=== PATIENT | female | born 1970 | race Caucasian/White ===

== ENCOUNTER → 2017-06-13 | Outpatient (CLI) | payer OTHER ==
[2017-06-13 13:11] LABS: Basophils % (A) 1 %; Eosinophils # (A) 0.1 k/uL (0-0.7); Eosinophils % (A) 1 %; HCT 40.3 % (34.0-46.0); HGB 13.6 gm/dL (11.4-16.0); Lymphocytes # (A) 1.8 k/uL (1.0-4.8); Lymphocytes % (A) 23 %; MCH 32.9 pg (25.0-35.0); MCHC 33.9 g/dL (31.0-37.0); MCV 97.1 fL (80.0-100.0); Mean Platelet Volume 6.7; Monocytes # (A) 0.5 k/uL (0-1.0); Monocytes % (A) 6 %; Neutrophils # (A) 5.5 k/uL (1.3-7.7); Neutrophils % (A) 68 %; Platelet Count 214 k/uL (150-450); RBC 4.15 m/uL (3.80-5.40); RDW 12.7 % (11.5-15.5)
== END ==
LOC: LABPAT 12:30
PROVIDERS: ATTEND Obstetrics & Gynecology Obstetrics
DX: Z01.812 Encounter for preprocedural laboratory examination (principal); I10 Essential (primary) hypertension; N92.0 Excessive and frequent menstruation with regular cycle; N94.6 Dysmenorrhea, unspecified; Z64.0 Problems related to unwanted pregnancy
CPT/HCPCS: 36415; 85025

== ENCOUNTER 2017-07-03 08:38 | Day surgery (SDC) | payer OTHER ==
[2017-06-29 09:06] VITALS: BMI 32.9
[~2017-07-03 08:38] MED LIST: ACETAMINOPHEN IV (For NPO) 1,000 MG in EMPTY BAG 1 BAG IVPB ONE; ACETAMINOPHEN IV (For NPO) 100 ML IVPB ONE; DEXAMETHASONE SOD PHOSPHATE 10 MG/ML 1 ML VIAL IV ONE; LACTATED RINGERS 1,000 ML IV SCH; MIDAZOLAM 2 MG/2 ML VIAL IV PRN; MORPHINE SULFATE 2 MG/ML SYRINGE IV PRN; ONDANSETRON ODT 4 MG TAB PO ONE; Pre Op ABX Message 1 EACH MISC MISCELLANE ONE; SCOPOLAMINE 1.5MG/72HR PATCH TRANSDERM ONE; ceFAZolin IN SWFI 2 GM/20 ML SYRINGE IVP ONE; fentaNYL (PF) 50 MCG/ML 2 ML AMP IV PRN
[2017-07-03] MEDS ORDERED: LIDOCAINE 1% 20 ML VIAL (10MG/ML) FOR IV START INTRADERMA ONE (09:54)
[2017-07-03] MEDS ORDERED: PHENYLEPHRINE-0.9% NACL SYG 1 MG/10 ML SYRINGE ONE (11:15)
[2017-07-03] MEDS ORDERED: MORPHINE SULFATE 10 MG/ML SYRINGE ONE (11:15)
[2017-07-03] MEDS ORDERED: MIDAZOLAM 2 MG/2 ML VIAL ONE (11:15)
[2017-07-03] MEDS ORDERED: fentaNYL (PF) 50 MCG/ML 2 ML AMP ONE (11:15)
[2017-07-03] MEDS ORDERED: GLYCOPYRROLATE 0.2 MG/ML 2 ML VIAL ONE (11:15)
[2017-07-03] MEDS ORDERED: NEOSTIGMINE 1 MG/ML 10 ML VIAL ONE (11:15)
[2017-07-03] MEDS ORDERED: PROPOFOL 10 MG/ML 20 ML VIAL IV ONE (11:15)
[2017-07-03] MEDS ORDERED: LIDOCAINE 1% INJ 10MG/ML (20 ML MDV) ONE (11:15)
[2017-07-03] MEDS ORDERED: KETOROLAC 30 MG/ML 1 ML VIAL ONE (11:15)
[2017-07-03] MEDS ORDERED: ROCURONIUM BROMIDE 10 MG/ML 10 ML VIAL IV ONE (11:15)
[2017-07-03] MEDS ORDERED: LACTATED RINGERS 1,000 ML IV ONE ×2 (11:30→13:09)
[2017-07-03] MEDS ORDERED: BUPIVACAINE (PF) 0.25% 30 ML VIAL SQ ONE ×3 (11:58→12:10)
--- NOTE | 2017-07-03 12:15 | P.OP ---
Date of Procedure: 07/03/17 Preoperative Diagnosis: menorrhagia, family status complete desires permanent sterilization Postoperative Diagnosis: same Procedure(s) Performed: Laparoscopic tubal ligation with Falope-Rings, hysteroscopy, dilation and curettage with endometrial ablation Anesthesia: OLIVE Surgeon: Consuelo Cardenas Estimated Blood Loss (ml): 10 IV fluids (ml): 900 Urine output (ml): 50 Pathology: other (Endometrial curettings) Condition: stable Indications for Procedure: Heavy menstrual bleeding, desires permanent sterilization Operative Findings: Proliferative endometrial cavity, fundal fibroid and normal ovaries bilaterally Description of Procedure: Patient was seen in the preoperative area and informed consent was obtained. Risks were reviewed including but not limited to infection, bleeding, damage to bladder, bowel, uterine perforation. Patient stated understanding and informed consent was obtained. Patient was seen in the operating suite where general anesthesia was obtained without difficulty by the anesthesia department she was then prepped and draped in normal sterile fashion in the dorsal lithotomy position a weighted speculum posterior vaginal vault and the red rubber catheter is used to drain clear yellow urine. The anterior lip of the cervix was visualized grasped with a single-tooth tenaculum and acorn uterine manipulator was advanced into the cervical canal as a means to manipulate the uterus during the procedure. Attention then turned to the patient's abdomen where in the umbilical fold a small incision is made through this incision the Veress needle was placed once the Veress needle was deemed to be the proper position with a drop of pressure with insufflation of CO2 gas, CO2 insufflation was allowed to occur. Approximately 3 L of gas were used to obtain pneumoperitoneum. At this time a 5 mm trocar and sleeve was placed through this incision with a customer care representative scope in placed with the pneumoperitoneum under direct visualization. The above noted findings were visualized at this point additional ports that is placed right lower quadrant this is an 8 mm port placed under direct visualization. Through this incision the Falope ring applicator was placed, and the left fallopian tube was grasped with the Falope ring applicator and operated according to children's book author's instructions, this was then repeated in the opposite side. Pictures were taken and all instrument were removed from the patient's abdomen. The skin incisions were closed with 4- 0 Vicryl in a subcuticular fashion, Steri-Strips and sterile dressings were applied. Attention was then turned the patient's vaginal vault acorn uterine manipulator was removed without difficulty and endocervical canal was dilated to [id number]. The hysteroscope was placed through the cervix and toward the endometrial cavity a proliferative endometrium was noted. A sharp curettage was then performed until gritty texture was noted in all 4 quadrants of the uterine cavity. At this point the NovaSure device was opened and set to the appropriate measurements for the patient's uterus length of 4 with of 2.5 power 55 cycling of 120. The cycle was completed after the cavity assessment was passed. Afterwards the device was removed without difficulty the single-tooth tenaculum was taken off of the anterior lip of the cervix and hemostasis was appreciated. All counts were correct 2 patient tolerated procedure well and was taken to recovery room awake and in stable condition
[2017-07-03 12:29] VITALS: TEMP 98.4
[2017-07-03] MEDS ORDERED: ACETAMINOPHEN IV (For NPO) 1,000 MG/100 ML VIAL IVPB ONE (12:58)
[2017-07-03 14:04] VITALS: BP 115/74; PULSE 70; RESP 18
== END 2017-07-03 14:28 | disposition home or self-care (01) ==
LOC: OR 08:38
PROVIDERS: ATTEND Obstetrics & Gynecology Obstetrics
DX: Z30.2 Encounter for sterilization (principal); N92.0 Excessive and frequent menstruation with regular cycle; I10 Essential (primary) hypertension; K21.9 Gastro-esophageal reflux disease without esophagitis; B00.9 Herpesviral infection, unspecified; Z79.82 Long term (current) use of aspirin; Z79.899 Other long term (current) drug therapy; Z87.891 Personal history of nicotine dependence
CPT/HCPCS: 81025; 58563; 58671; J2250; J1100; J2710; J2270; J2001; J3010; J1885; J0131; J2370; J2704; 88305

== ENCOUNTER → 2017-08-11 | Outpatient (CLI) | payer OTHER ==
--- NOTE | 2017-08-11 10:23 | USB ---
Reason for exam: clinical finding. History: Family history of breast cancer in maternal grandmother. Physical Findings: Nurse Summary: all soft, nodular tissue bilaterally (nurse ts). US Breast RT Right complete breast ultrasound includes all four quadrants, the retroareolar region and axilla. Finding demonstrates a 0.3 x 0.3 x 0.2cm oval lesion too small to characterize at 12 o'clock, a 0.4 x 0.5 x 0.2cm oval, cystic, mixed cluster at 1 o'clock, a 0.2 x 0.5 x 0.2cm oval, complex lesion too small to characterize at 10 o'clock and a 0.6 x 0.4 x 0.2cm oval, complex, cystic lesion at 10 o'clock. These results were verbally communicated with the patient and result sheet given to the patient on 08/11/17. ASSESSMENT: Probably benign, BI-RAD 3 RECOMMENDATION: Follow-up diagnostic mammogram of both breasts. (due now for mammogram) Ultrasound of the right breast in 6 months.
== END | disposition home or self-care (01) ==
LOC: RADUSWWP 08:59
PROVIDERS: ATTEND Family Medicine
DX: R92.8 Other abnormal and inconclusive findings on diagnostic imaging of breast (principal)

== ENCOUNTER → 2017-08-18 | Outpatient (CLI) | payer OTHER ==
--- NOTE | 2017-08-21 09:45 | MM ---
Reason for exam: additional evaluation requested from prior study. Last mammogram was performed 2 years and 10 months ago. History: Family history of breast cancer in maternal grandmother. Took hormonal contraceptives beginning at age 17. Physical Findings: Breast exam done on 08/11/17. MG 3D Diag Mammo W/Cad FILEMON Bilateral CC and MLO view(s) were taken. Prior study comparison: October 08, 2014, bilateral MG diagnostic mammo w CAD FILEMON. The breast tissue is heterogeneously dense. This may lower the sensitivity of mammography. There are round, oval, multiple small circumscribed right breast masses corresponding to sonograph probable benign findings which will be followed with ultrasound in 6 months. No suspicious abnormality. These results were verbally communicated with the patient and result sheet given to the patient on 08/18/17. ASSESSMENT: Probably benign, BI-RAD 3 RECOMMENDATION: Ultrasound of the right breast in 6 months.
== END | disposition home or self-care (01) ==
LOC: RADMAMWWP 13:59
PROVIDERS: ATTEND Family Medicine
DX: R92.8 Other abnormal and inconclusive findings on diagnostic imaging of breast (principal)
CPT/HCPCS: 77062; 77066

== ENCOUNTER 2018-01-26 13:37 | Emergency (ER) | payer OTHER ==
[2018-01-26 14:57] LABS: Basophils % (A) 0 %; Eosinophils # (A) 0.1 k/uL (0-0.7); Eosinophils % (A) 1 %; HCT 43.4 % (34.0-46.0); HGB 15.5 gm/dL (11.4-16.0); Lymphocytes # (A) 0.5 k/uL (1.0-4.8); Lymphocytes % (A) 5 %; MCH 34.7 pg (25.0-35.0); MCHC 35.6 g/dL (31.0-37.0); MCV 97.4 fL (80.0-100.0); Mean Platelet Volume 7.8; Monocytes # (A) 0.6 k/uL (0-1.0); Monocytes % (A) 6 %; Neutrophils # (A) 8.3 k/uL (1.3-7.7); Neutrophils % (A) 85 %; Platelet Count 100 k/uL (150-450); RBC 4.45 m/uL (3.80-5.40); WBC 9.7 k/uL (3.8-10.6)
[2018-01-26 15:11] LABS: ALT 82 U/L (9-52); AST 128 U/L (14-36); Albumin 4.2 g/dL (3.5-5.0); Alkaline Phosphatase 87 U/L (38-126); Anion Gap 16 mmol/L; Blood Urea Nitrogen 8 mg/dL (7-17); Calcium 8.9 mg/dL (8.4-10.2); Carbon Dioxide 19 mmol/L (22-30); Chloride 97 mmol/L (98-107); Glucose 109 mg/dL (74-99); Potassium 3.7 mmol/L (3.5-5.1); Sodium 132 mmol/L (137-145); Total Bilirubin 1.1 mg/dL (0.2-1.3)
[2018-01-26] MEDS ORDERED: ACETAMINOPHEN TAB 500 MG TAB PO STA (15:51)
[2018-01-26] MEDS ORDERED: IBUPROFEN 800 MG TAB PO STA (15:51)
[2018-01-26] MEDS ORDERED: SODIUM CHLORIDE 0.9% 2,000 ML IV ONE (15:51)
[2018-01-26] MEDS ORDERED: PHENAZOPYRIDINE 200 MG TAB PO STA (15:52)
--- NOTE | 2018-01-26 15:55 | ED ---
General Adult HPI - General Chief complaint: Headache Stated complaint: Fever, NVD Time Seen by Provider: 01/26/18 15:42 Source: patient Mode of arrival: ambulatory Limitations: no limitations - History of Present Illness Initial comments: This is a 39-year-old female presents to the chief complaint of headache, urinary frequency, and back pain. Patient states that this is been going on over the last 10 days. He cannot identify an inciting incident. There are no aggravating or alleviating factors. Patient also admits to having a fever at home. She admits to nausea and vomiting. Patient has no other complaints today. - Related Data Home Medications Medication Instructions Recorded Confirmed Acyclovir [Zovirax] 800 mg PO DAILY 06/05/15 01/26/18 Allopurinol [Zyloprim] 300 mg PO DAILY 06/05/15 01/26/18 Eye Lubricant Combination No.1 1 applic BOTH EYES HS 06/05/15 01/26/18 [[place]] Omeprazole 20 mg PO DAILY 06/05/15 01/26/18 amLODIPine BESYLATE [Norvasc] 10 mg PO DAILY 06/05/15 01/26/18 Aspirin [Adult Low Dose Aspirin EC] 81 mg PO DAILY 06/11/15 01/26/18 Cholecalciferol (Vitamin D3) 5,000 unit PO QAM 06/29/17 01/26/18 [Vitamin D3] Hydrochlorothiazide [Hydrodiuril] 25 mg PO DAILY 06/29/17 01/26/18 Magnesium 400 mg PO QAM 06/29/17 01/26/18 Metoprolol Tartrate [Lopressor] 50 mg PO QAM 06/29/17 01/26/18 Crozet-3 Fatty Acids [Crozet-3] 1,600 mg PO QAM 06/29/17 01/26/18 SUMAtriptan SUCCINATE [Imitrex] 25 mg PO DIRECTED PRN 06/29/17 01/26/18 Ibuprofen [Motrin Ib] 800 mg PO Q6HR PRN 01/26/18 01/26/18 Previous Rx's Medication Instructions Recorded Levofloxacin [Levaquin] 750 mg PO DAILY #7 tab 01/26/18 Phenazopyridine HCl [Pyridium] 200 mg PO TID PRN #6 tablet 01/26/18 Allergies Allergy/AdvReac Type Severity Reaction Status Date / Time No Known Allergies Allergy Verified 01/26/18 16:00 Review of Systems ROS Statement: Those systems with pertinent positive or pertinent negative responses have been documented in the HPI. ROS Other: All systems not noted in ROS Statement are negative. Gastrointestinal: Reports: nausea, vomiting Musculoskeletal: Reports: back pain Past Medical History Past Medical History: GERD/Reflux, Hypertension, Osteoarthritis (OA) Additional Past Medical History / Comment(s): gout History of Any Multi-Drug Resistant Organisms: None Reported Past Surgical History: Cholecystectomy Additional Past Surgical History / Comment(s): carpel tunnel, d & c, polyps removed Past Anesthesia/Blood Transfusion Reactions: No Reported Reaction Past Psychological History: No Psychological Hx Reported Smoking Status: Current some day smoker Past Alcohol Use History: Daily Past Drug Use History: None Reported - Past Family History Father Family Medical History: No Reported History, Unable to Obtain Mother Family Medical History: Hypertension Additional Family Medical History / Comment(s): HTN General Exam Limitations: no limitations General appearance: alert, in no apparent distress Head exam: Present: atraumatic, normocephalic Eye exam: Present: normal appearance ENT exam: Present: mucous membranes dry Neck exam: Present: normal inspection Respiratory exam: Present: normal lung sounds bilaterally. Absent: respiratory distress, wheezes Cardiovascular Exam: Present: regular rate, normal rhythm GI/Abdominal exam: Present: soft. Absent: distended, tenderness Rectal exam: Present: deferred Extremities exam: Present: normal inspection Back exam: Present: normal inspection. Absent: CVA tenderness (R), CVA tenderness (L) Neurological exam: Present: alert, oriented X3 Psychiatric exam: Present: normal affect, normal mood Skin exam: Present: warm, dry, intact Course Vital Signs 01/26/18 01/26/18 13:51 17:06 Temperature 100.6 F H 98.6 F Pulse Rate 95 84 Respiratory 16 16 Rate Blood Pressure 103/72 109/65 O2 Sat by Pulse 97 96 Oximetry Medical Decision Making - Medical Decision Making Patient presents with a chief complaint of dysuria, headache, and fever. On initial evaluation, vital signs show a fever of 100.6 otherwise stable. Patient is in no acute distress. Patient is mandatory without assistance, she has no meningeal signs. I suspect the patient is suffering from urinary tract infection, versus pyelonephritis. She'll be evaluated with basic labs, urinalysis, urine culture. Patient given Motrin, Tylenol, and Pyridium for symptomatically relief. 5:28 PM Lab evaluation of this patient shows evidence of a urinary tract infection, culture sent. renal function stable. Liver enzymes mildly elevated, patient aware and instructed to follow up. Patient given a dose of Rocephin in the emergency department. She'll be treated with 7 days of Levaquin. Patient instructed to follow up with primary care in 1 week for repeat examination of her urine. Return to the emergency department if symptoms worsen or change. - Lab Data Result diagrams: 01/26/18 14:35 01/26/18 14:35 Lab Results 01/26/18 01/26/18 01/26/18 Range/Units 14:35 14:35 Unknown WBC 9.7 (3.8-10.6) k/uL RBC 4.45 (3.80-5.40) m/uL Hgb 15.5 (11.4-16.0) gm/dL Hct 43.4 (34.0-46.0) % MCV 97.4 (80.0-100.0) fL MCH 34.7 (25.0-35.0) pg MCHC 35.6 (31.0-37.0) g/dL RDW 13.0 (11.5-15.5) % Plt Count 100 L (150-450) k/uL Neutrophils % 85 % Lymphocytes % 5 % Monocytes % 6 % Eosinophils % 1 % Basophils % 0 % Neutrophils # 8.3 H (1.3-7.7) k/uL Lymphocytes # 0.5 L (1.0-4.8) k/uL Monocytes # 0.6 (0-1.0) k/uL Eosinophils # 0.1 (0-0.7) k/uL Basophils # 0.0 (0-0.2) k/uL Sodium 132 L (137-145) mmol/L Potassium 3.7 (3.5-5.1) mmol/L Chloride 97 L (98-107) mmol/L Carbon Dioxide 19 L (22-30) mmol/L Anion Gap 16 mmol/L BUN 8 (7-17) mg/dL Creatinine 0.55 (0.52-1.04) mg/dL Est GFR (CKD-EPI)AfAm >90 (>60 ml/min/1.73 sqM) Est GFR (CKD-EPI)NonAf >90 (>60 ml/min/1.73 sqM) Glucose 109 H (74-99) mg/dL Calcium 8.9 (8.4-10.2) mg/dL Total Bilirubin 1.1 (0.2-1.3) mg/dL AST 128 H (14-36) U/L ALT 82 H (9-52) U/L Alkaline Phosphatase 87 (38-126) U/L Total Protein 8.0 (6.3-8.2) g/dL Albumin 4.2 (3.5-5.0) g/dL Urine Color Dark Yellow Urine Appearance Cloudy H (Clear) Urine pH 6.0 (5.0-8.0) Ur Specific [place] 1.018 (1.001-1.035) Urine Protein 1+ H (Negative) Urine Glucose (UA) Negative (Negative) Urine Ketones 2+ H (Negative) Urine Blood Small H (Negative) Urine Nitrite Negative (Negative) Urine Bilirubin Negative (Negative) Urine Urobilinogen 2.0 (<2.0) mg/dL Ur Leukocyte Esterase Large H (Negative) Urine RBC 20 H (0-5) /hpf Urine WBC >182 H (0-5) /hpf Ur Squamous Epith Cells 3 (0-4) /hpf Urine Bacteria Moderate H (None) /hpf Urine Mucus Many H (None) /hpf Disposition Clinical Impression: Pyelonephritis, Fever, Transaminitis, Elevated LFTs Disposition: HOME SELF-CARE Condition: Good Instructions: Urinary Tract Infection in Women (DC) Prescriptions: Levofloxacin [Levaquin] 750 mg PO DAILY #7 tab Phenazopyridine HCl [Pyridium] 200 mg PO TID PRN #6 tablet PRN Reason: Pain Is patient prescribed a controlled substance at d/c from ED?: No Referrals: Zaire Steiner MD [Primary Care Provider] - 1-2 days
[2018-01-26 16:37] LABS: Appearance,Urine Cloudy (Clear); Bacteria,Urine Moderate /hpf; Bilirubin,Urine Negative (Negative); Blood,Urine Small (Negative); Color,Urine Dark Yellow; Glucose,Urine (UA) Negative (Negative); Ketones,Urine 2+ (Negative); Leukocyte Esterase,Urine Large (Negative); Mucus,Urine Many /hpf; Nitrite,Urine Negative (Negative); Protein,Urine 1+ (Negative); RBC,Urine 20 /hpf (0-5); Specific Gravity,Urine 1.018 (1.001-1.035); Squamous Epithelial Cell,Urine 3 /hpf (0-4)
[2018-01-26 19:26] VITALS: BP 92/55; PULSE 74; RESP 15; TEMP 99
[2018-01-26 21:00] LABS: HCG,Qualitative Serum Not Detected
== END 2018-01-26 19:30 | disposition home or self-care (01) ==
LOC: EC 13:37
DX: N12 Tubulo-interstitial nephritis, not specified as acute or chronic (principal); R74.0 Nonspecific elevation of levels of transaminase and lactic acid dehydrogenase [LDH]; R79.89 Other specified abnormal findings of blood chemistry; I10 Essential (primary) hypertension; K21.9 Gastro-esophageal reflux disease without esophagitis; F17.200 Nicotine dependence, unspecified, uncomplicated; Z79.82 Long term (current) use of aspirin; Z79.899 Other long term (current) drug therapy
CPT/HCPCS: 36415; 80053; 85025; 81001; 84703; 87040; 87086; 87077; 87186; 99284; 96365; 96361; J0696

== ENCOUNTER → 2018-02-19 | Outpatient (CLI) | payer OTHER ==
--- NOTE | 2018-02-19 12:16 | USB ---
Reason for exam: follow-up at short interval from prior study. History: Family history of breast cancer in maternal grandmother. Took hormonal contraceptives beginning at age 17. Physical Findings: Nurse did not find any significant physical abnormalities on exam. US Breast RT Right complete breast ultrasound includes all four quadrants, the retroareolar region and axilla. Finding demonstrates a 0.3 x 0.3 x 0.3cm lesion too small to characterize at 12 o'clock, a 0.4 x 0.4 x 0.6cm cystic cluster at 1 o'clock, a 0.6 x 0.3 x 0.5cm cystic cluster at 10 o'clock and a 0.4 x 0.3 x 0.4cm lesion too small to characterize at 10 o'clock. These results were verbally communicated with the patient and result sheet given to the patient on 02/19/18. ASSESSMENT: Probably benign, BI-RAD 3 RECOMMENDATION: Follow-up diagnostic mammogram of both breasts in 6 months. Back on schedule. Ultrasound of the right breast in 6 months.
== END | disposition home or self-care (01) ==
LOC: RADUSWWP 10:14
PROVIDERS: ATTEND Family Medicine
DX: R92.8 Other abnormal and inconclusive findings on diagnostic imaging of breast (principal)

== ENCOUNTER → 2018-02-27 | Outpatient (CLI) | payer OTHER | END | disposition home or self-care (01) | LOC: RADCTMAIN 12:06 | PROVIDERS: ATTEND Family Medicine | DX: Z53.9 Procedure and treatment not carried out, unspecified reason (principal) ==

== ENCOUNTER → 2018-05-18 | Outpatient (CLI) | payer OTHER ==
--- NOTE | 2018-05-18 11:36 | CT ---
EXAMINATION TYPE: CT abdomen pelvis w con DATE OF EXAM: 05/18/2018 HISTORY: Lower abdominal pain and bilateral leg swelling. CT DLP: 1035.2mGycm Automated Exposure Control for Dose Reduction was Utilized. CONTRAST: CT scan of the abdomen and pelvis is performed with IV Contrast, patient injected with 100 mL of Isov ue M300. COMPARISON: 03/02/2015. FINDINGS: LUNG BASES: No significant abnormality is appreciated. LIVER/GB: Hepatic parenchyma is diffusely hypoattenuated in comparison to that of the spleen, most co mmonly seen in hepatic steatosis. This finding limits evaluation for hepatic masses. No gross evidenc e of hepatic mass is seen. No intrahepatic biliary ductal dilatation. Gallbladder appears surgically absent. PANCREAS: No significant abnormality is seen. SPLEEN: No significant abnormality is seen. ADRENALS: No significant abnormality is seen. KIDNEYS: Left renal cyst measures 1.8 cm. No hydronephrosis of either kidney. BOWEL: No significant abnormality is seen. Appendix is midline and air-filled, within normal limits. UTERUS/ADNEXA: 2.7 cm left adnexal cyst is present. Probable nabothian cyst is seen. LYMPH NODES: No greater than 1cm abdominal or pelvic lymph nodes are appreciated. OSSEOUS STRUCTURES: Mild degenerative changes are seen in the lumbar spine. IMPRESSION: 1. Redemonstration of hepatic steatosis. 2. Left renal cyst and probable left adnexal cyst.
== END | disposition home or self-care (01) ==
LOC: RADCTMAIN 09:01
PROVIDERS: ATTEND Family Medicine
DX: K76.0 Fatty (change of) liver, not elsewhere classified (principal); N28.1 Cyst of kidney, acquired
CPT/HCPCS: 74177; Q9967

== ENCOUNTER → 2018-09-05 | Outpatient (CLI) | payer OTHER ==
--- NOTE | 2018-09-06 09:26 | MM ---
Reason for exam: additional evaluation requested from prior study. Last mammogram was performed 1 year and 1 month ago. History: Family history of breast cancer in maternal grandmother. Took hormonal contraceptives beginning at age 17. Physical Findings: Nurse did not find any significant physical abnormalities on exam. MG 3D Diag Mammo W/Cad FILEMON Bilateral CC and MLO view(s) were taken. LM, spot compression CC, and spot compression MLO view(s) were taken of the left breast. Prior study comparison: August 18, 2017, bilateral MG 3d diag mammo w/cad FILEMON. October 08, 2014, bilateral MG diagnostic mammo w CAD FILEMON. There are scattered fibroglandular densities. There is chronic nodularity in the right breast. Medial left breast asymmetry stable from 2018, does not persist on 3D. Central 3-4 o'clock asymmetric density appears more defined. On spot 3D, the area partially disperses. These results were verbally communicated with the patient and result sheet given to the patient on 09/05/18. ASSESSMENT: Incomplete: need additional imaging evaluation, BI-RAD 0 RECOMMENDATION: Ultrasound of both breasts. (right entire, left 3 o'clock)
--- NOTE | 2018-09-06 09:29 | USB ---
Reason for exam: additional evaluation requested from abnormal screening. History: Family history of breast cancer in maternal grandmother. Took hormonal contraceptives beginning at age 17. US Breast Limited BILAT Right complete breast ultrasound includes all four quadrants, the retroareolar region and axilla. Finding demonstrates a 4 x 2 x 4mm oval, hypoechoic lesion at 2 o'clock, stable, previous appearance of a cyst cluster, a 3 x 2 x 2mm oval, hypoechoic lesion too small to characterize at 11 o'clock, overall unchanged and a 3 x 3 x 5mm oval, hypoechoic lesion too small to characterize at 11 o'clock, overall unchanged. Left limited breast ultrasound including focal area of concern, retroareolar and axilla demonstrates no cystic or solid lesion seen. Scanned 12-4 o'clock. Precautionary 6 month follow up recommended. These results were verbally communicated with the patient and result sheet given to the patient on 09/05/18. ASSESSMENT: Probably benign, BI-RAD 3 RECOMMENDATION: Follow-up diagnostic mammogram of the left breast in 6 months.
== END | disposition home or self-care (01) ==
LOC: RADMAMWWP 12:56
PROVIDERS: ATTEND Family Medicine
DX: R92.8 Other abnormal and inconclusive findings on diagnostic imaging of breast (principal)
CPT/HCPCS: 77062; 77066

== ENCOUNTER 2018-10-24 12:41 | Emergency (ER) | payer OTHER ==
[2018-10-24 12:58] VITALS: RESP 18; TEMP 99.1
[2018-10-24] MEDS ORDERED: LIDOCAINE 5% PATCH TOPICAL STA (13:48)
[2018-10-24] MEDS ORDERED: MORPHINE SULFATE 4 MG/ML SYRINGE IV STA (13:49)
[2018-10-24 13:51] LABS: Appearance,Urine Clear (Clear); Bilirubin,Urine Negative (Negative); Blood,Urine Negative (Negative); Color,Urine Yellow; Glucose,Urine (UA) Negative (Negative); Ketones,Urine Negative (Negative); Leukocyte Esterase,Urine Negative (Negative); Nitrite,Urine Negative (Negative); Protein,Urine Trace (Negative); Specific Gravity,Urine 1.019 (1.001-1.035)
--- NOTE | 2018-10-24 13:52 | ED ---
General Adult HPI - General Chief complaint: Abdominal Pain Stated complaint: Back pain Time Seen by Provider: 10/24/18 13:03 Source: patient Mode of arrival: ambulatory Limitations: no limitations - History of Present Illness Initial comments: Dictation was produced using [employer] dictation software. please excuse any grammatical, word or spelling errors. Chief Complaint: 47-year-old female with past medical history of GERD hypertension osteoporosis presents with right lower back pain. History of Present Illness: She is a 47-year-old female she presents today with right lower back pain. 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 A few days at work she felt leg she went to stand up and felt a twinge in her right lower back. Patient states that her back symptoms in constant over the last couple days. Today she felt like her symptoms do not improve prompting her to come to the emergency department. Patient has history of back pain in the past however usually do not last this long. Patient denies any urinary symptoms. No CVA tenderness. Patient states her pain is sharp and reproducible with movement . She had her fianc rubbed the area and she was told that maybe there is a small palpable node in the area. She did not set her urine looked darker than usual. Patient has no history of kidney stones. The ROS documented in this emergency department record has been reviewed and confirmed by me. Those systems with pertinent positive or negative responses have been documented in the HPI. All other systems are other negative and/or noncontributory. PHYSICAL EXAM: General Impression: Alert and oriented x3, not in acute distress HEENT: Normocephalic atraumatic, extra-ocular movements intact, pupils equal and reactive to light bilaterally, mucous membranes moist. Cardiovascular: Heart regular rate and rhythm, S1&S2 audible, no murmurs, rubs or gallops Chest: Lungs clear to auscultation bilaterally, no rhonchi, no wheeze, no rales Abdomen: Bowel sounds present, abdomen soft, non-tender, non-distended, no organomegaly Musculoskeletal: Pulses present and equal in all extremities, no peripheral edema Motor: no focal deficits noted Neurological: CN II-XII grossly intact, no focal motor or sensory deficits noted Skin: Intact with no visualized rashes Psych: Normal affect and mood ED course: 47-year-old female presents with right lower back pain. Vital signs upon arrival are within acceptable limits.There is concern is that patient's symptoms did not reflect musculoskeletal injury. Labs and urine was obtained. CBC unremarkable. Metabolic panel is negative. Urinalysis is negative. Patient given IV analgesics, antiemetics and intravenous fluids. She states that her symptoms are slightly improved however not that much better. Nonetheless, patient appears comfortable. She is ambulatory with minimal complications. Patient symptoms are clearly musculoskeletal given that there only reproducible with pain. No concern for pelvic pathology given the patient has no complaints of urinary symptoms of a negative urinalysis and has no clinical vaginal complaints. Patient was comfortable being discharged to follow up with chiropractor. She is given referral to spine surgery. Patient prescription for muscle relaxants. - Related Data Home Medications Medication Instructions Recorded Confirmed Acyclovir [Zovirax] 800 mg PO DAILY 06/05/15 10/24/18 Allopurinol [Zyloprim] 300 mg PO DAILY 06/05/15 10/24/18 Omeprazole 20 mg PO DAILY 06/05/15 10/24/18 amLODIPine BESYLATE [Norvasc] 10 mg PO DAILY 06/05/15 10/24/18 Aspirin [Adult Low Dose Aspirin EC] 81 mg PO DAILY 06/11/15 10/24/18 Cholecalciferol (Vitamin D3) 5,000 unit PO QAM 06/29/17 10/24/18 [Vitamin D3] Hydrochlorothiazide [Hydrodiuril] 25 mg PO DAILY 06/29/17 10/24/18 Magnesium 400 mg PO QAM 06/29/17 10/24/18 Metoprolol Tartrate [Lopressor] 50 mg PO QAM 06/29/17 10/24/18 SUMAtriptan SUCCINATE [Imitrex] 25 mg PO DAILY PRN 06/29/17 10/24/18 Carboxymethylcellulose Sodium 1 drop BOTH EYES TID 10/24/18 10/24/18 [Refresh Tears] Cranberry Fruit Extract [Cranberry] 500 mg PO DAILY 10/24/18 10/24/18 Cyanocobalamin (Vitamin B-12) 1,000 mcg PO DAILY 10/24/18 10/24/18 [Vitamin B-12] L.acidoph,Paracasei, B.lactis 1 cap PO DAILY 10/24/18 10/24/18 [Probiotic] Lifitegrast [Xiidra] 1 drop BOTH EYES BID 10/24/18 10/24/18 Lutein 10 mg PO DAILY 10/24/18 10/24/18 [place] 3-6-9 1 cap PO DAILY 10/24/18 10/24/18 Potassium 99 mg PO DAILY 10/24/18 10/24/18 Spironolact/Hydrochlorothiazid 1 tab PO DAILY 10/24/18 10/24/18 [Aldactazide 50-50 MG] Ubidecarenone [Co Q-10] 400 mg PO DAILY 10/24/18 10/24/18 Vit C/E/Zn/Coppr/Lutein/Zeaxan 1 cap PO BID 10/24/18 10/24/18 [Preservision Areds 2 Softgel] Zolpidem Tartrate [Ambien] 10 mg PO HS PRN 10/24/18 10/24/18 Previous Rx's Medication Instructions Recorded Baclofen [Lioresal] 5 mg PO TID PRN #12 tablet 10/24/18 Allergies Allergy/AdvReac Type Severity Reaction Status Date / Time No Known Allergies Allergy Verified 10/24/18 13:51 Review of Systems ROS Statement: Those systems with pertinent positive or pertinent negative responses have been documented in the HPI. ROS Other: All systems not noted in ROS Statement are negative. Past Medical History Past Medical History: GERD/Reflux, Hypertension, Osteoarthritis (OA) Additional Past Medical History / Comment(s): gout History of Any Multi-Drug Resistant Organisms: None Reported Past Surgical History: Cholecystectomy Additional Past Surgical History / Comment(s): carpel tunnel, d & c, polyps removed Past Anesthesia/Blood Transfusion Reactions: No Reported Reaction Past Psychological History: Bipolar Smoking Status: Current some day smoker Past Alcohol Use History: Daily Past Drug Use History: None Reported - Past Family History Father Family Medical History: No Reported History, Unable to Obtain Mother Family Medical History: Hypertension Additional Family Medical History / Comment(s): HTN General Exam Limitations: no limitations Course Vital Signs 10/24/18 10/24/18 12:55 14:59 Temperature 99.1 F Pulse Rate 79 70 Respiratory 18 18 Rate Blood Pressure 128/81 102/64 O2 Sat by Pulse 98 94 L Oximetry Medical Decision Making - Lab Data Result diagrams: 10/24/18 13:30 10/24/18 13:30 Lab Results 10/24/18 10/24/18 10/24/18 Range/Units 13:30 13:30 13:30 WBC 7.0 (3.8-10.6) k/uL RBC 4.23 (3.80-5.40) m/uL Hgb 15.1 (11.4-16.0) gm/dL Hct 44.1 (34.0-46.0) % MCV 104.4 H (80.0-100.0) fL MCH 35.7 H (25.0-35.0) pg MCHC 34.2 (31.0-37.0) g/dL RDW 14.0 (11.5-15.5) % Plt Count 155 (150-450) k/uL Neutrophils % 68 % Lymphocytes % 19 % Monocytes % 9 % Eosinophils % 1 % Basophils % 1 % Neutrophils # 4.8 (1.3-7.7) k/uL Lymphocytes # 1.3 (1.0-4.8) k/uL Monocytes # 0.6 (0-1.0) k/uL Eosinophils # 0.1 (0-0.7) k/uL Basophils # 0.0 (0-0.2) k/uL Macrocytosis Slight Sodium 138 (137-145) mmol/L Potassium 3.8 (3.5-5.1) mmol/L Chloride 100 (98-107) mmol/L Carbon Dioxide 30 (22-30) mmol/L Anion Gap 8 mmol/L BUN 11 (7-17) mg/dL Creatinine 0.54 (0.52-1.04) mg/dL Est GFR (CKD-EPI)AfAm >90 (>60 ml/min/1.73 sqM) Est GFR (CKD-EPI)NonAf >90 (>60 ml/min/1.73 sqM) Glucose 176 H (74-99) mg/dL Calcium 8.9 (8.4-10.2) mg/dL AST (14-36) U/L ALT (9-52) U/L Alkaline Phosphatase (38-126) U/L Urine Color Yellow Urine Appearance Clear (Clear) Urine pH 8.0 (5.0-8.0) Ur Specific [place] 1.019 (1.001-1.035) Urine Protein Trace H (Negative) Urine Glucose (UA) Negative (Negative) Urine Ketones Negative (Negative) Urine Blood Negative (Negative) Urine Nitrite Negative (Negative) Urine Bilirubin Negative (Negative) Urine Urobilinogen 3.0 (<2.0) mg/dL Ur Leukocyte Esterase Negative (Negative) 10/24/18 Range/Units 13:30 WBC (3.8-10.6) k/uL RBC (3.80-5.40) m/uL Hgb (11.4-16.0) gm/dL Hct (34.0-46.0) % MCV (80.0-100.0) fL MCH (25.0-35.0) pg MCHC (31.0-37.0) g/dL RDW (11.5-15.5) % Plt Count (150-450) k/uL Neutrophils % % Lymphocytes % % Monocytes % % Eosinophils % % Basophils % % Neutrophils # (1.3-7.7) k/uL Lymphocytes # (1.0-4.8) k/uL Monocytes # (0-1.0) k/uL Eosinophils # (0-0.7) k/uL Basophils # (0-0.2) k/uL Macrocytosis Sodium (137-145) mmol/L Potassium (3.5-5.1) mmol/L Chloride (98-107) mmol/L Carbon Dioxide (22-30) mmol/L Anion Gap mmol/L BUN (7-17) mg/dL Creatinine (0.52-1.04) mg/dL Est GFR (CKD-EPI)AfAm (>60 ml/min/1.73 sqM) Est GFR (CKD-EPI)NonAf (>60 ml/min/1.73 sqM) Glucose (74-99) mg/dL Calcium (8.4-10.2) mg/dL AST 69 H (14-36) U/L ALT 58 H (9-52) U/L Alkaline Phosphatase 97 (38-126) U/L Urine Color Urine Appearance (Clear) Urine pH (5.0-8.0) Ur Specific [place] (1.001-1.035) Urine Protein (Negative) Urine Glucose (UA) (Negative) Urine Ketones (Negative) Urine Blood (Negative) Urine Nitrite (Negative) Urine Bilirubin (Negative) Urine Urobilinogen (<2.0) mg/dL Ur Leukocyte Esterase (Negative) Disposition Clinical Impression: Back pain Disposition: HOME SELF-CARE Condition: Good Instructions (If sedation given, give patient instructions): Acute Low Back Pain (ED) Prescriptions: Baclofen [Lioresal] 5 mg PO TID PRN #12 tablet PRN Reason: back pain Is patient prescribed a controlled substance at d/c from ED?: No Referrals: Zaire Steiner MD [Primary Care Provider] - 1-2 days Time of Disposition: 15:46
[2018-10-24 13:53] LABS: African American GFR (CKD) >90 (>60 ml/min/1.73 sqM); Anion Gap 8 mmol/L; Blood Urea Nitrogen 11 mg/dL (7-17); Calcium 8.9 mg/dL (8.4-10.2); Carbon Dioxide 30 mmol/L (22-30); Chloride 100 mmol/L (98-107); Glucose 176 mg/dL (74-99); Potassium 3.8 mmol/L (3.5-5.1); Sodium 138 mmol/L (137-145)
[2018-10-24 14:02] LABS: Basophils % (A) 1 %; Eosinophils # (A) 0.1 k/uL (0-0.7); Eosinophils % (A) 1 %; HCT 44.1 % (34.0-46.0); HGB 15.1 gm/dL (11.4-16.0); Lymphocytes # (A) 1.3 k/uL (1.0-4.8); Lymphocytes % (A) 19 %; MCH 35.7 pg (25.0-35.0); MCHC 34.2 g/dL (31.0-37.0); MCV 104.4 fL (80.0-100.0); Macrocytosis Slight; Mean Platelet Volume 7.5; Monocytes # (A) 0.6 k/uL (0-1.0); Monocytes % (A) 9 %; Neutrophils # (A) 4.8 k/uL (1.3-7.7); Neutrophils % (A) 68 %; Platelet Count 155 k/uL (150-450); RBC 4.23 m/uL (3.80-5.40)
[2018-10-24] MEDS ORDERED: SODIUM CHLORIDE 0.9% 1,000 ML IV STA (14:03)
[2018-10-24 14:23] LABS: ALT 58 U/L (9-52); AST 69 U/L (14-36); Alkaline Phosphatase 97 U/L (38-126)
[2018-10-24] MEDS ORDERED: ONDANSETRON 4 MG/2 ML VIAL IVP STA (14:36)
[2018-10-24 16:34] VITALS: BP 107/73; PULSE 63
== END 2018-10-24 16:31 | disposition home or self-care (01) ==
LOC: EC 12:41
DX: M54.5 Low back pain (principal); K21.9 Gastro-esophageal reflux disease without esophagitis; I10 Essential (primary) hypertension; M19.90 Unspecified osteoarthritis, unspecified site; M10.9 Gout, unspecified; F17.200 Nicotine dependence, unspecified, uncomplicated; Z79.82 Long term (current) use of aspirin; Z79.899 Other long term (current) drug therapy
CPT/HCPCS: 36415; 80048; 84075; 84450; 84460; 85025; 81003; 87086; 99284; 96374; 96375; 96361 ×2; J2270; J2405

== ENCOUNTER 2018-12-20 14:48 | Inpatient (IN) | payer OTHER ==
[2018-12-20 16:38] VITALS: BMI 70.9
[2018-12-20] MEDS ORDERED: SUMAtriptan SUCCINATE 25 MG TAB PO PRN (17:36)
[2018-12-20] MEDS ORDERED: NALOXONE 0.4 MG/ML 1 ML VIAL IV PRN (17:42)
[2018-12-20] MEDS: SPIRONOLACTONE-HCTZ 25-25MG 1 EACH TAB PO SCH (18:34)
[2018-12-20] MEDS: POTASSIUM CHLORIDE ER 10 MEQ TAB.ER.PRT PO SCH (18:34)
[2018-12-20] MEDS ORDERED: LORazepam 2 MG/ML INJ IV PRN (18:54)
[2018-12-20] MEDS ORDERED: THIAMINE 100 MG/ML 2 ML VIAL IM STA (18:54)
[2018-12-20] MEDS: THIAMINE 100 MG TAB PO SCH (19:01)
[2018-12-20] MEDS: DEXTROSE 5%-0.2% NACL 1,000 ML IV SCH (19:02)
[2018-12-20 19:13] LABS: Basophils # (A) 0.1 k/uL (0-0.2); Basophils % (A) 1 %; Eosinophils # (A) 0.1 k/uL (0-0.7); Eosinophils % (A) 1 %; HCT 41.9 % (34.0-46.0); HGB 14.2 gm/dL (11.4-16.0); Lymphocytes # (A) 1.3 k/uL (1.0-4.8); Lymphocytes % (A) 13 %; MCH 35.7 pg (25.0-35.0); MCHC 33.9 g/dL (31.0-37.0); MCV 105.3 fL (80.0-100.0); Macrocytosis Slight; Mean Platelet Volume 7.2; Monocytes # (A) 0.6 k/uL (0-1.0); Monocytes % (A) 5 %; Neutrophils # (A) 8.1 k/uL (1.3-7.7); Neutrophils % (A) 79 %; Platelet Count 201 k/uL (150-450); RBC 3.98 m/uL (3.80-5.40); RDW 12.7 % (11.5-15.5); WBC 10.2 k/uL (3.8-10.6)
[2018-12-20 19:20] LABS: INR 1.1 (<1.2); Prothrombin Time 11.2 sec (9.0-12.0)
[2018-12-20 19:28] LABS: ALT 53 U/L (9-52); AST 59 U/L (14-36); African American GFR (CKD) >90 (>60 ml/min/1.73 sqM); Albumin 4.1 g/dL (3.5-5.0); Alcohol <10 mg/dL; Alkaline Phosphatase 150 U/L (38-126); Anion Gap 11 mmol/L; Blood Urea Nitrogen 5 mg/dL (7-17); Calcium 9.6 mg/dL (8.4-10.2); Carbon Dioxide 26 mmol/L (22-30); Chloride 96 mmol/L (98-107); GGT 531 U/L (12-43); Glucose 222 mg/dL (74-99); Magnesium 1.5 mg/dL (1.6-2.3); Phosphorus 2.9 mg/dL (2.5-4.5); Potassium 3.4 mmol/L (3.5-5.1); Sodium 133 mmol/L (137-145); Total Bilirubin 1.4 mg/dL (0.2-1.3); Total Protein 7.7 g/dL (6.3-8.2)
[2018-12-20 19:33] LABS: Appearance,Urine Clear (Clear); Bilirubin,Urine Negative (Negative); Blood,Urine Negative (Negative); Color,Urine Light Yellow; Glucose,Urine (UA) Negative (Negative); Ketones,Urine Negative (Negative); Leukocyte Esterase,Urine Negative (Negative); Nitrite,Urine Negative (Negative); Protein,Urine Negative (Negative); Specific Gravity,Urine 1.005 (1.001-1.035); Urobilinogen,Urine <2.0 mg/dL (<2.0)
[2018-12-20 19:43] LABS: Amphetamine Screen,Urine Not Detected (NotDetected); Barbiturate Screen,Urine Not Detected (NotDetected); Benzodiazepines Screen,Urine Not Detected (NotDetected); Cocaine Screen,Urine Not Detected (NotDetected); Methadone Screen, Urine Not Detected (NotDetected); Opiate Screen,Urine Not Detected (NotDetected); Oxycodone Screen, Urine Not Detected (NotDetected); Phencyclidine Screen,Urine Not Detected (NotDetected); Tricyclic Antidepressant,Urine Not Detected (NotDetected); Urn Cannabinoid Scrn Not Detected (NotDetected)
--- NOTE | 2018-12-20 20:49 | XR ---
EXAMINATION TYPE: XR chest 2V DATE OF EXAM: 12/20/2018 COMPARISON: 06/11/2015 HISTORY: Chest pain TECHNIQUE: Frontal and lateral views of the chest are obtained. FINDINGS: Heart and mediastinum are normal. Lungs are clear. Diaphragm is normal. There is old left clavicle healed fracture. Thoracic spine is intact. IMPRESSION: No active cardiopulmonary disease. No change.
[2018-12-20] MEDS: FUROSEMIDE 10 MG/ML 4 ML VIAL IV SCH (22:13)
[2018-12-20] MEDS: ARTIFICIAL TEARS-HYPROMELLOSE DROPS 15 ML BTL BOTH EYES SCH (22:13)
[2018-12-20] MEDS: HYDROcodone/APAP 5-325MG 1 EACH TAB PO PRN (22:20)
[2018-12-21] MEDS: DEXTROSE 5%-0.2% NACL 1,000 ML IV SCH ×2 (04:12→14:28)
[2018-12-21] MEDS: HYDROcodone/APAP 5-325MG 1 EACH TAB PO PRN ×4 (04:20→20:55)
[2018-12-21] MEDS: LORazepam 2 MG/ML INJ IV PRN ×4 (04:22→21:06)
[2018-12-21] MEDS: PANTOPRAZOLE 40 MG TABLET PO SCH (07:04)
[2018-12-21] MEDS: THIAMINE 100 MG TAB PO SCH ×2 (07:04→17:06)
[2018-12-21] MEDS: amLODIPine 10 MG TAB PO SCH (09:01)
[2018-12-21] MEDS: ALLOPURINOL 300 MG TAB PO SCH (09:01)
[2018-12-21] MEDS: METOPROLOL TARTRATE 50 MG TAB PO SCH (09:01)
[2018-12-21] MEDS: SPIRONOLACTONE-HCTZ 25-25MG 1 EACH TAB PO SCH (09:01)
[2018-12-21] MEDS: ASPIRIN 81 MG PO SCH (09:01)
[2018-12-21] MEDS: POTASSIUM CHLORIDE ER 10 MEQ TAB.ER.PRT PO SCH (09:01)
[2018-12-21] MEDS: ACYCLOVIR 800 MG TAB PO SCH (09:01)
[2018-12-21] MEDS: ARTIFICIAL TEARS-HYPROMELLOSE DROPS 15 ML BTL BOTH EYES SCH ×3 (09:01→20:56)
[2018-12-21] MEDS: CYANOCOBALAMIN 500 MCG TAB PO SCH (09:01)
[2018-12-21] MEDS: FUROSEMIDE 10 MG/ML 4 ML VIAL IV SCH ×2 (09:02→20:54)
[2018-12-21] MEDS: LACTOBACILLUS ACIDOPH & BULGAR 1 EACH PACKET PO SCH (09:12)
[2018-12-21] MEDS ORDERED: POTASSIUM CHLORIDE 2 MEQ/ML 20 ML VIAL IVPB SCH (16:00)
[2018-12-21 16:33] LABS: Glucose,Whole Blood 241 mg/dL (75-99)
[2018-12-21] MEDS ORDERED: Potassium Replacement Protocol 1 EACH MISC MISCELLANE PRN ×2 (16:45→18:11)
[2018-12-21] MEDS: INSULIN ASPART (NovoLOG) 100 UNIT/ML VIAL SQ SCH ×2 (17:05→20:55)
[2018-12-21] MEDS: POTASSIUM CHLORIDE ER 20 MEQ TAB.ER PO SCH ×2 (18:25→21:06)
--- NOTE | 2018-12-21 18:54 | HP ---
HISTORY AND PHYSICAL CHIEF COMPLAINT: Shortness of breath, chest pain and abdominal distention with edema of the lower extremities. HISTORY OF PRESENT ILLNESS: This is the first known admission for this 48-year-old white female who is a chronic alcoholic. She has tried stop drinking. She came into the office on the day of admission complaining of shortness of breath, lung congestion, tightness in the chest, abdominal distention and progressive edema of the lower extremities. It was determined that this was likely due to her alcohol with cirrhosis, developing ascites and lower extremity edema. She was told that she must stop drinking, and she requested to go into the hospital to be detoxed. REVIEW OF SYSTEMS: She has had no headaches, diplopia, seizures, blackouts, neurologic problems, change in vision or hearing, chest pain, cough, hemoptysis, heart disease, hypertension, jaundice, hematemesis, melena, hematochezia, renal failure, diabetes, etc. Past medical history, family history, and personal and social histories are significant in that she is on several medications of significance, includin. Baclofen 10 mg 3 times a day p.r.n. 2. Acyclovir 800 mg once a day p.r.n. 3. Vitamin D. 4. Allopurinol 300 mg once a day. 5. Metoprolol 50 mg once a day. 6. Amlodipine 10 mg once a day. Remainder of her history is unremarkable. She does smoke and she drinks heavily. She admits to at least 6 beers a day, but states that she has stopped drinking vodka as of 2 weeks ago. PHYSICAL EXAMINATION: Blood pressure was 120/60 with a pulse of 100, respirations of 35, and she was afebrile. In general, she appeared to be overweight and face was flushed. She was very short of breath. Head, ears, eyes, nose, mouth and throat were normal. Chest demonstrated decreased breath sounds throughout with occasional rales. The cardiac exam demonstrated tachycardia. There were no murmurs or extra sounds. Abdomen was protuberant and slightly tender. Fluid wave could not be appreciated. Liver was enlarged and tender. Extremities demonstrated 3+ edema of both legs. Neurologically she was intact and had no tremors at this point. IMPRESSION: 1. 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 2. Chronic alcoholism. 3. Nicotine abuse. PLAN: 1. Bed rest. 2. IV fluids. 3. CIWA protocol. ALIE / CHRISTIANA: [id number] /
--- NOTE | 2018-12-21 19:24 | PN ---
PROGRESS NOTE DATE OF SERVICE: 12/21/2018 CHIEF COMPLAINT: Acute alcohol intoxication, DTs and ascites. HISTORY OF PRESENT ILLNESS: This lady is fairly stable so far. She is not experiencing any tremors or diplopia. She has had no nausea or vomiting. PHYSICAL EXAMINATION: Chest is clear. Cardiac exam is normal. Vital signs are normal. IMPRESSION: 1. Chronic alcoholism. 2. Impending delirium tremens. PLAN: Continue with current program and reassess tomorrow. MMODL / IJN: [id number] /
[2018-12-21 20:12] LABS: Glucose,Whole Blood 160 mg/dL (75-99)
[2018-12-22] MEDS: ZOLPIDEM 10 MG TAB PO PRN (00:51)
[2018-12-22] MEDS: DEXTROSE 5%-0.2% NACL 1,000 ML IV SCH ×2 (00:52→10:44)
[2018-12-22] MEDS: LORazepam 2 MG/ML INJ IV PRN ×6 (03:33→23:34)
[2018-12-22 04:41] LABS: Hemoglobin A1C 6.2 % (4.0-6.0)
[2018-12-22 06:17] LABS: Glucose,Whole Blood 174 mg/dL (75-99)
[2018-12-22] MEDS: INSULIN ASPART (NovoLOG) 100 UNIT/ML VIAL SQ SCH ×4 (06:26→20:44)
[2018-12-22] MEDS: THIAMINE 100 MG TAB PO SCH ×2 (06:26→17:21)
[2018-12-22] MEDS: PANTOPRAZOLE 40 MG TABLET PO SCH (06:26)
[2018-12-22 06:43] LABS: African American GFR (CKD) >90 (>60 ml/min/1.73 sqM); Anion Gap 8 mmol/L; Blood Urea Nitrogen 5 mg/dL (7-17); Calcium 9.1 mg/dL (8.4-10.2); Carbon Dioxide 29 mmol/L (22-30); Chloride 94 mmol/L (98-107); Glucose 173 mg/dL (74-99); Magnesium 1.4 mg/dL (1.6-2.3); Potassium 3.1 mmol/L (3.5-5.1); Sodium 131 mmol/L (137-145)
[2018-12-22] MEDS: POTASSIUM CHLORIDE ER 20 MEQ TAB.ER PO SCH ×2 (07:08→07:49)
[2018-12-22] MEDS: METOPROLOL TARTRATE 50 MG TAB PO SCH (07:49)
[2018-12-22] MEDS: amLODIPine 10 MG TAB PO SCH (07:49)
[2018-12-22] MEDS: CYANOCOBALAMIN 500 MCG TAB PO SCH (07:49)
[2018-12-22] MEDS: ACYCLOVIR 800 MG TAB PO SCH (07:49)
[2018-12-22] MEDS: LACTOBACILLUS ACIDOPH & BULGAR 1 EACH PACKET PO SCH (07:49)
[2018-12-22] MEDS: ALLOPURINOL 300 MG TAB PO SCH (07:49)
[2018-12-22] MEDS: SPIRONOLACTONE-HCTZ 25-25MG 1 EACH TAB PO SCH (07:49)
[2018-12-22] MEDS: HYDROcodone/APAP 5-325MG 1 EACH TAB PO PRN ×3 (07:50→20:45)
[2018-12-22] MEDS: ASPIRIN 81 MG PO SCH (07:50)
[2018-12-22] MEDS: FUROSEMIDE 10 MG/ML 4 ML VIAL IV SCH ×2 (07:50→20:43)
[2018-12-22] MEDS: POTASSIUM CHLORIDE ER 10 MEQ TAB.ER.PRT PO SCH (07:50)
[2018-12-22] MEDS: ARTIFICIAL TEARS-HYPROMELLOSE DROPS 15 ML BTL BOTH EYES SCH ×3 (07:59→20:44)
[2018-12-22] MEDS ORDERED: Magnesium Replacement Protocol 1 EACH MISC MISCELLANE PRN (09:18)
[2018-12-22] MEDS: MAGNESIUM SULFATE-D5W PMX 1 GM in DEXTROSE/WATER 1 100ML.BAG IVPB SCH ×3 (09:48→11:59)
[2018-12-22 11:51] LABS: Glucose,Whole Blood 217 mg/dL (75-99)
[2018-12-22 17:00] LABS: Glucose,Whole Blood 154 mg/dL (75-99)
--- NOTE | 2018-12-22 17:09 | PN ---
PROGRESS NOTE CHIEF COMPLAINT: DT's. HISTORY OF PRESENT ILLNESS: This lady is becoming more tremulous. Potassium is also low as was her magnesium and needs to be corrected. At the present time, she is not in the room. PHYSICAL EXAM: Will be deferred. IMPRESSION: 1. Delirium tremens. 2. Alcoholism. 3. Hypokalemia. 4. Hypomagnesemia. PLAN: Replace potassium and magnesium and continue to monitor. MMODL / IJN: [id number] /
[2018-12-22] MEDS: NICOTINE 21MG/24HR PATCH TRANSDERM SCH (17:21)
[2018-12-22 20:20] LABS: Glucose,Whole Blood 164 mg/dL (75-99)
[2018-12-22] MEDS: ONDANSETRON 4 MG/2 ML VIAL IVP PRN (23:34)
[2018-12-23] MEDS: DEXTROSE 5%-0.2% NACL 1,000 ML IV SCH ×3 (01:06→14:27)
[2018-12-23] MEDS: LORazepam 2 MG/ML INJ IV PRN ×2 (04:16→21:25)
[2018-12-23 06:21] LABS: Glucose,Whole Blood 153 mg/dL (75-99)
[2018-12-23 06:44] LABS: Magnesium 1.5 mg/dL (1.6-2.3)
[2018-12-23 06:47] LABS: Potassium 2.6 mmol/L (3.5-5.1)
[2018-12-23] MEDS: THIAMINE 100 MG TAB PO SCH ×2 (07:01→17:05)
[2018-12-23] MEDS: INSULIN ASPART (NovoLOG) 100 UNIT/ML VIAL SQ SCH ×4 (07:01→21:24)
[2018-12-23] MEDS: PANTOPRAZOLE 40 MG TABLET PO SCH (07:01)
[2018-12-23] MEDS: POTASSIUM CHLORIDE 20 MEQ in WATER FOR INJECTION 1 100ML.BAG IVPB SCH ×3 (08:09→12:09)
[2018-12-23] MEDS: MAGNESIUM SULFATE-D5W PMX 1 GM in DEXTROSE/WATER 1 100ML.BAG IVPB SCH ×2 (08:09→09:21)
[2018-12-23] MEDS: FUROSEMIDE 10 MG/ML 4 ML VIAL IV SCH ×2 (08:12→21:24)
[2018-12-23] MEDS: ALLOPURINOL 300 MG TAB PO SCH (08:15)
[2018-12-23] MEDS: amLODIPine 10 MG TAB PO SCH (08:15)
[2018-12-23] MEDS: CYANOCOBALAMIN 500 MCG TAB PO SCH (08:16)
[2018-12-23] MEDS: BACLOFEN 10 MG TAB PO PRN ×2 (08:16→17:05)
[2018-12-23] MEDS: METOPROLOL TARTRATE 50 MG TAB PO SCH (08:16)
[2018-12-23] MEDS: ASPIRIN 81 MG PO SCH (08:16)
[2018-12-23] MEDS: POTASSIUM CHLORIDE ER 20 MEQ TAB.ER PO SCH ×3 (08:16→12:09)
[2018-12-23] MEDS: LACTOBACILLUS ACIDOPH & BULGAR 1 EACH PACKET PO SCH (08:17)
[2018-12-23] MEDS: SPIRONOLACTONE-HCTZ 25-25MG 1 EACH TAB PO SCH (08:17)
[2018-12-23] MEDS: POTASSIUM CHLORIDE ER 10 MEQ TAB.ER.PRT PO SCH (08:17)
[2018-12-23] MEDS: HYDROcodone/APAP 5-325MG 1 EACH TAB PO PRN ×2 (08:17→14:26)
[2018-12-23] MEDS: NICOTINE 21MG/24HR PATCH TRANSDERM SCH (08:17)
[2018-12-23] MEDS: ACYCLOVIR 800 MG TAB PO SCH (08:17)
[2018-12-23] MEDS: ARTIFICIAL TEARS-HYPROMELLOSE DROPS 15 ML BTL BOTH EYES SCH ×3 (10:03→22:52)
[2018-12-23 12:04] LABS: Glucose,Whole Blood 204 mg/dL (75-99)
--- NOTE | 2018-12-23 15:49 | PN ---
PROGRESS NOTE CHIEF COMPLAINT: DTs. HISTORY OF PRESENT ILLNESS: This lady is still a little bit shaky, but she is slightly improved. Her potassium is profoundly low at around 2.6, however. She has had no vomiting or diarrhea. PHYSICAL EXAMINATION: Color is good. Hydration is good. Chest is clear. Cardiac exam is normal. Abdomen is soft and nontender and a little bit less distended. There is no longer any edema in the lower extremities. IMPRESSION: 1. Delirium tremens. 2. Chronic alcoholism. 3. Alcoholic hepatitis and cirrhosis with ascites. 4. Hypomagnesemia. 5. Hypokalemia. PLAN: Continue with IV fluids and correct hypokalemia. MMODL / IJN: [id number] /
[2018-12-23 16:44] LABS: African American GFR (CKD) >90 (>60 ml/min/1.73 sqM); Anion Gap 11 mmol/L; Blood Urea Nitrogen 6 mg/dL (7-17); Carbon Dioxide 27 mmol/L (22-30); Chloride 90 mmol/L (98-107); Glucose 199 mg/dL (74-99); Potassium 3.7 mmol/L (3.5-5.1); Sodium 128 mmol/L (137-145)
[2018-12-23 16:51] LABS: Glucose,Whole Blood 196 mg/dL (75-99)
[2018-12-23] MEDS: ONDANSETRON 4 MG/2 ML VIAL IVP PRN (17:06)
[2018-12-23 20:48] LABS: Glucose,Whole Blood 161 mg/dL (75-99)
[2018-12-23] MEDS: ZOLPIDEM 10 MG TAB PO PRN (23:04)
[2018-12-24 06:23] LABS: Glucose,Whole Blood 185 mg/dL (75-99)
[2018-12-24] MEDS: THIAMINE 100 MG TAB PO SCH (06:39)
[2018-12-24] MEDS: INSULIN ASPART (NovoLOG) 100 UNIT/ML VIAL SQ SCH ×2 (06:39→12:17)
[2018-12-24] MEDS: PANTOPRAZOLE 40 MG TABLET PO SCH (06:39)
[2018-12-24] MEDS: ARTIFICIAL TEARS-HYPROMELLOSE DROPS 15 ML BTL BOTH EYES SCH ×2 (06:42→16:22)
[2018-12-24 06:48] LABS: African American GFR (CKD) >90 (>60 ml/min/1.73 sqM); Anion Gap 8 mmol/L; Blood Urea Nitrogen 6 mg/dL (7-17); Calcium 8.7 mg/dL (8.4-10.2); Carbon Dioxide 30 mmol/L (22-30); Chloride 93 mmol/L (98-107); Glucose 175 mg/dL (74-99); Magnesium 1.6 mg/dL (1.6-2.3); Potassium 2.9 mmol/L (3.5-5.1); Sodium 131 mmol/L (137-145)
[2018-12-24] MEDS: DEXTROSE 5%-0.2% NACL 1,000 ML IV SCH (06:52)
[2018-12-24 06:54] LABS: Basophils % (A) 0 %; Eosinophils # (A) 0.1 k/uL (0-0.7); Eosinophils % (A) 1 %; HCT 40.3 % (34.0-46.0); HGB 14.4 gm/dL (11.4-16.0); Lymphocytes # (A) 1.3 k/uL (1.0-4.8); Lymphocytes % (A) 13 %; MCH 36.3 pg (25.0-35.0); MCHC 35.7 g/dL (31.0-37.0); MCV 101.7 fL (80.0-100.0); Mean Platelet Volume 6.1; Monocytes # (A) 0.5 k/uL (0-1.0); Monocytes % (A) 5 %; Neutrophils # (A) 8.2 k/uL (1.3-7.7); Neutrophils % (A) 79 %; Platelet Count 193 k/uL (150-450); RBC 3.97 m/uL (3.80-5.40); RDW 12.6 % (11.5-15.5); WBC 10.4 k/uL (3.8-10.6)
[2018-12-24] MEDS: POTASSIUM CHLORIDE ER 20 MEQ TAB.ER PO SCH ×3 (08:34→12:17)
[2018-12-24] MEDS: amLODIPine 10 MG TAB PO SCH (08:34)
[2018-12-24] MEDS: NICOTINE 21MG/24HR PATCH TRANSDERM SCH (08:34)
[2018-12-24] MEDS: POTASSIUM CHLORIDE ER 10 MEQ TAB.ER.PRT PO SCH (08:34)
[2018-12-24] MEDS: CYANOCOBALAMIN 500 MCG TAB PO SCH (08:34)
[2018-12-24] MEDS: ACYCLOVIR 800 MG TAB PO SCH (08:35)
[2018-12-24] MEDS: LACTOBACILLUS ACIDOPH & BULGAR 1 EACH PACKET PO SCH (08:35)
[2018-12-24] MEDS: SPIRONOLACTONE-HCTZ 25-25MG 1 EACH TAB PO SCH (08:35)
[2018-12-24] MEDS: MAGNESIUM SULFATE-D5W PMX 1 GM in DEXTROSE/WATER 1 100ML.BAG IVPB SCH ×2 (08:35→09:44)
[2018-12-24] MEDS: METOPROLOL TARTRATE 50 MG TAB PO SCH (08:35)
[2018-12-24] MEDS: ALLOPURINOL 300 MG TAB PO SCH (08:35)
[2018-12-24] MEDS: ASPIRIN 81 MG PO SCH (08:35)
[2018-12-24] MEDS: FUROSEMIDE 10 MG/ML 4 ML VIAL IV SCH (08:36)
[2018-12-24 10:08] VITALS: RESP 18; TEMP 97.9
[2018-12-24] MEDS ORDERED: DEXTROSE 5%-0.45% NACL 1,000 ML IV SCH (11:00)
[2018-12-24 12:05] LABS: Glucose,Whole Blood 157 mg/dL (75-99)
[2018-12-24 12:07] VITALS: BP 105/57; PULSE 75
--- NOTE | 2018-12-24 14:57 | DS ---
DISCHARGE SUMMARY CHIEF COMPLAINT: DTs and anasarca. HISTORY OF PRESENT ILLNESS AND PHYSICAL EXAM: Details of this lady's history and physical can be found in the initial workup. LABORATORY STUDIES: While she was in a hospital she had laboratory studies, details of which can be found in the laboratory section of her chart. COURSE IN HOSPITAL: After admission, she was placed on bedrest, started on intravenous fluids and on CIWA protocol. She did go into DTs, but was spared severe withdrawal. She had difficulty with hypokalemia and hypomagnesemia, but otherwise did well. It is felt that she could go home on the and she will be seen in the office in several days. FINAL DIAGNOSES: 1. Delirium tremens. 2. Chronic alcoholism. 3. Acute alcohol intoxication. 4. Alcoholic hepatitis. 5. Cirrhosis with ascites. 6. Hypokalemia. 7. Hypomagnesemia. OPERATIONS: None. CONSULTATION: None. She is improved. MMRASHIDAL / MARSHALLN: [id number] /
[2018-12-24] MEDS ORDERED: ACAMPROSATE CALCIUM 333 MG TABLET.DR PO SCH (16:00)
[2018-12-24] MEDS ORDERED: CALCIUM CARB-MAG CARB-FOLIC 1 EACH TAB PO SCH (17:30)
[2018-12-24] MEDS ORDERED: POTASSIUM CHLORIDE ER 20 MEQ TAB.ER PO SCH (21:00)
[2018-12-25] MEDS ORDERED: FUROSEMIDE 20 MG TAB PO SCH (09:00)
== END 2018-12-24 16:41 | disposition home or self-care (01) | DRG 433 ==
LOC: 3SCARD 15:52
PROVIDERS: ADMIT Family Medicine; ATTEND Family Medicine
DX: K70.31 Alcoholic cirrhosis of liver with ascites (principal); F10.231 Alcohol dependence with withdrawal delirium; E83.42 Hypomagnesemia; E87.6 Hypokalemia; K70.11 Alcoholic hepatitis with ascites; Z79.899 Other long term (current) drug therapy; E66.3 Overweight; Z68.29 Body mass index [BMI] 29.0-29.9, adult; F17.210 Nicotine dependence, cigarettes, uncomplicated; F10.229 Alcohol dependence with intoxication, unspecified
CPT/HCPCS: 71046; 80048; 80053; 80306; 80320; 81003; 82977; 83036; 83735; 84100; 84132; 85025; 85610

== ENCOUNTER → 2019-04-17 | Outpatient (CLI) | payer OTHER ==
--- NOTE | 2019-04-17 09:09 | MM ---
Reason for exam: follow-up at short interval from prior study. Last mammogram was performed 7 months ago. History: Took hormonal contraceptives beginning at age 17. Physical Findings: Nurse did not find any significant physical abnormalities on exam. MG 3D Diag Mammo W/Cad LT CC and MLO view(s) were taken of the left breast. Prior study comparison: September 05, 2018, bilateral MG 3d diag mammo w/cad FILEMON. August 18, 2017, bilateral MG 3d diag mammo w/cad FILEMON. The breast tissue is heterogeneously dense. This may lower the sensitivity of mammography. Stable left upper outer quadrant middle depth focal asymmetry. These results were verbally communicated with the patient and result sheet given to the patient on 04/17/19. ASSESSMENT: Probably benign, BI-RAD 3 RECOMMENDATION: Follow-up diagnostic mammogram of both breasts in 6 months.
== END | disposition home or self-care (01) ==
LOC: RADMAMWWP 07:05
PROVIDERS: ATTEND Family Medicine
DX: R92.8 Other abnormal and inconclusive findings on diagnostic imaging of breast (principal)
CPT/HCPCS: 77061; 77065

== ENCOUNTER → 2020-01-03 | Outpatient (CLI) | payer OTHER ==
--- NOTE | 2020-01-07 10:59 | MM ---
Reason for exam: follow-up at short interval from prior study. Last mammogram was performed 9 months ago. History: Took hormonal contraceptives beginning at age 17. Physical Findings: Nurse did not find any significant physical abnormalities on exam. MG 3D Diag Mammo W/Cad FILEMON Bilateral CC and MLO view(s) were taken. Prior study comparison: April 17, 2019, left breast MG 3d diag mammo w/cad LT. September 05, 2018, bilateral MG 3d diag mammo w/cad FILEMON. There are scattered fibroglandular densities. Asymmetric density central anterior to middle depth left CC view, unchanged for 6 months. Continued follow up recommended. No significant new findings when compared with previous films. These results were verbally communicated with the patient and result sheet given to the patient on 01/03/20. ASSESSMENT: Probably benign, BI-RAD 3 RECOMMENDATION: Follow-up diagnostic mammogram of the left breast in 6 months.
== END | disposition home or self-care (01) ==
LOC: RADMAMWWP 14:18
PROVIDERS: ATTEND Family Medicine
DX: R92.8 Other abnormal and inconclusive findings on diagnostic imaging of breast (principal)
CPT/HCPCS: 77062; 77066

== ENCOUNTER → 2020-07-17 | Outpatient (CLI) | payer OTHER ==
--- NOTE | 2020-07-20 09:23 | MM ---
Reason for exam: follow-up at short interval from prior study. Last mammogram was performed 6 months ago. History: Patient is postmenopausal. Took hormonal contraceptives beginning at age 17. Physical Findings: Nurse did not find any significant physical abnormalities on exam. MG 3D Diag Mammo W/Cad LT CC, MLO, and XCCL view(s) were taken of the left breast. Prior study comparison: January 03, 2020, bilateral MG 3d diag mammo w/cad FILEMON. April 17, 2019, left breast MG 3d diag mammo w/cad LT. There are scattered fibroglandular densities. No significant new findings when compared with previous films. These results were verbally communicated with the patient and result sheet given to the patient on 07/17/20. ASSESSMENT: Benign, BI-RAD 2 RECOMMENDATION: Routine screening mammogram of both breasts in 5 months. Back on schedule for December 2020.
== END | disposition home or self-care (01) ==
LOC: RADMAMWWP 13:34
PROVIDERS: ATTEND Family Medicine
DX: R92.8 Other abnormal and inconclusive findings on diagnostic imaging of breast (principal); Z78.0 Asymptomatic menopausal state
CPT/HCPCS: 77061; 77065

== ENCOUNTER → 2021-03-19 | Outpatient (CLI) | payer OTHER ==
--- NOTE | 2021-03-22 13:41 | MM ---
Reason for exam: screening (asymptomatic). Last mammogram was performed 8 months ago. History: Patient is postmenopausal. Took hormonal contraceptives beginning at age 17. Physical Findings: A clinical breast exam by your physician is recommended on an annual basis and results should be correlated with mammographic findings. MG 3D Screening Mammo W/Cad Bilateral CC and MLO view(s) were taken. Prior study comparison: July 17, 2020, left breast MG 3d diag mammo w/cad LT. January 03, 2020, bilateral MG 3d diag mammo w/cad FILEMON. There are scattered fibroglandular densities. There is chronic nodularity in the left breast. No significant changes when compared with prior studies. ASSESSMENT: Benign, BI-RAD 2 RECOMMENDATION: Routine screening mammogram of both breasts in 1 year.
== END | disposition home or self-care (01) ==
LOC: RADMAMWWP 07:20
PROVIDERS: ATTEND Family Medicine
DX: Z12.31 Encounter for screening mammogram for malignant neoplasm of breast (principal); Z78.0 Asymptomatic menopausal state
CPT/HCPCS: 77063; 77067

== ENCOUNTER 2022-12-18 21:12 | Observation (INO) | payer OTHER ==
[2022-12-18] MEDS ORDERED: SODIUM CHLORIDE 0.9% 1,000 ML IV STA (22:13)
[2022-12-18 22:47] LABS: Basophils # (A) 0.1 k/uL (0-0.2); Basophils % (A) 1 %; Eosinophils # (A) 0.2 k/uL (0-0.7); Eosinophils % (A) 2 %; HCT 43.5 % (34.0-46.0); HGB 15.4 gm/dL (11.4-16.0); Lymphocytes # (A) 2.5 k/uL (1.0-4.8); Lymphocytes % (A) 29 %; MCHC 35.3 g/dL (31.0-37.0); MCV 104.9 fL (80.0-100.0); Macrocytosis Slight; Monocytes # (A) 0.7 k/uL (0-1.0); Monocytes % (A) 8 %; Neutrophils % (A) 57 %; Platelet Count 125 k/uL (150-450); RBC 4.15 m/uL (3.80-5.40); RDW 12.5 % (11.5-15.5); WBC 8.8 k/uL (3.8-10.6)
[2022-12-18 22:49] LABS: Appearance,Urine Clear (Clear); Bilirubin,Urine Negative (Negative); Blood,Urine Negative (Negative); Color,Urine Colorless; Glucose,Urine (UA) Negative (Negative); Ketones,Urine Negative (Negative); Leukocyte Esterase,Urine Negative (Negative); Nitrite,Urine Negative (Negative); PH, Urine 7.5 (5.0-8.0); Protein,Urine Negative (Negative); Specific Gravity,Urine 1.003 (1.001-1.035); Urobilinogen,Urine <2.0 mg/dL (<2.0)
[2022-12-18 23:01] LABS: ALT 50 U/L (4-34); AST 72 U/L (14-36); African American GFR (CKD) >90 (>60 ml/min/1.73 sqM); Alkaline Phosphatase 179 U/L (38-126); Amylase 54 U/L (30-110); Anion Gap 15 mmol/L; Blood Urea Nitrogen 6 mg/dL (7-17); Calcium 9.1 mg/dL (8.4-10.2); Carbon Dioxide 25 mmol/L (22-30); Chloride 97 mmol/L (98-107); Glucose 175 mg/dL (74-99); Lipase 935 U/L (23-300); Non-African American GFR(CKD) >90 (>60 ml/min/1.73 sqM); Potassium 3.1 mmol/L (3.5-5.1); Sodium 137 mmol/L (137-145); Total Bilirubin 0.9 mg/dL (0.2-1.3); Total Protein 7.8 g/dL (6.3-8.2)
[2022-12-18 23:04] LABS: Amphetamine Screen,Urine Not Detected (NotDetected); Barbiturate Screen,Urine Not Detected (NotDetected); Benzodiazepines Screen,Urine Not Detected (NotDetected); Cocaine Screen,Urine Not Detected (NotDetected); Methadone Screen, Urine Not Detected (NotDetected); Opiate Screen,Urine Not Detected (NotDetected); Oxycodone Screen, Urine Not Detected (NotDetected); Phencyclidine Screen,Urine Not Detected (NotDetected); Tricyclic Antidepressant,Urine Not Detected (NotDetected); Urn Cannabinoid Scrn Not Detected (NotDetected)
--- NOTE | 2022-12-18 23:09 | XR ---
EXAMINATION TYPE: XR KUB DATE OF EXAM: 12/18/2022 11:03 PM CLINICAL HISTORY: Lower abdominal pain TECHNIQUE: Two Upright KUB images of the abdomen are obtained. COMPARISON: CT abdomen and pelvis May 18, 2018 FINDINGS: Gas is seen in nondistended stomach. Scattered gas is seen in non-distended small and large bowel loops. There is no visceromegaly, pneumoperitoneum, or abnormal calcification appreciated. The lung bases are clear and the osseous structures are intact. IMPRESSION: Overall nonobstructive bowel gas pattern.
[2022-12-18 23:17] LABS: Alcohol 363 mg/dL
[2022-12-18] MEDS ORDERED: Potassium Replacement Protocol 1 EACH MISC MISCELLANE PRN (23:37)
[2022-12-18] MEDS ORDERED: MORPHINE SULFATE 4 MG/ML SYRINGE IVP PRN (23:38)
[2022-12-18] MEDS ORDERED: ONDANSETRON 4 MG/2 ML VIAL IVP PRN (23:39)
[2022-12-18] MEDS ORDERED: NALOXONE 0.4 MG/ML 1 ML VIAL IV PRN (23:39)
[2022-12-18] MEDS ORDERED: LORazepam 2 MG/ML INJ IV PRN ×3 (23:41)
[2022-12-18] MEDS ORDERED: THIAMINE 100 MG/ML 2 ML VIAL IM STA (23:41)
--- NOTE | 2022-12-18 23:42 | ED ---
Abdominal Pain HPI - General Chief Complaint: Abdominal Pain Stated Complaint: Abdominal Pain Time Seen by Provider: 12/18/22 21:49 Source: patient Mode of arrival: ambulatory Limitations: no limitations - History of Present Illness Initial Comments: 52-year-old female with history of alcoholism presenting with chief complaint of abdominal pain. Patient states that the pain is diffuse but is mainly present in the epigastric region. Pain is intermittent and has been ongoing since yesterday. She describes it as a cramping pain. No nausea or vomiting. No diarrhea. No fevers or chills. Patient normally drinks about 8 drinks per day, states that her last drink was today and she had about 10 drinks prior to arrival. No chest pain or difficulty breathing. No palpitations, numbness, tingling, weakness. No pain at time of evaluation. - Related Data Home Medications Medication Instructions Recorded Confirmed Acyclovir [Zovirax] 800 mg PO DAILY 06/05/15 12/20/18 Omeprazole 20 mg PO DAILY 06/05/15 12/20/18 allopurinoL [Zyloprim] 300 mg PO DAILY 06/05/15 12/20/18 amLODIPine BESYLATE [Norvasc] 10 mg PO DAILY 06/05/15 12/20/18 Aspirin [Adult Low Dose Aspirin EC] 81 mg PO DAILY 06/11/15 12/20/18 Metoprolol Tartrate [Lopressor] 50 mg PO DAILY 06/29/17 12/20/18 Carboxymethylcellulose Sodium 1 drop BOTH EYES TID 10/24/18 12/20/18 [Refresh Tears] Cranberry Fruit Extract [Cranberry] 500 mg PO DAILY 10/24/18 12/20/18 Cyanocobalamin (Vitamin B-12) 1,000 mcg PO DAILY 10/24/18 12/20/18 [Vitamin B-12] L.acidoph,Paracasei, B.lactis 1 cap PO DAILY 10/24/18 12/20/18 [Probiotic] Spironolact/Hydrochlorothiazid 1 tab PO DAILY 10/24/18 12/20/18 [Aldactazide 50-50 MG] Ubidecarenone [Co Q-10] 400 mg PO DAILY 10/24/18 12/20/18 Vit C/E/Zn/Coppr/Lutein/Zeaxan 1 cap PO BID 10/24/18 12/20/18 [Preservision Areds 2 Softgel] Acetic Acid [Acetic Acid Otic 5 drop BOTH EARS QID 12/20/18 12/20/18 Solution] Calcium Carbonate/Vitamin D3 1 tab PO DAILY 12/20/18 12/20/18 [Calcium 250-D Tablet] Cholecalciferol [Vitamin D3 (25 5,000 unit PO DAILY 12/20/18 12/20/18 Mcg = 1000 Iu)] Cider Vinegar [Apple Cider Vinegar] 300 mg PO BID 12/20/18 12/20/18 Fish Oil 1400mg 1 cap PO DAILY 12/20/18 12/20/18 Florical 1 cap PO DAILY 12/20/18 12/20/18 Lifitegrast [Xiidra] 1 drop BOTH EYES BID 12/20/18 12/20/18 Magnesium Oxide [Mag-Ox] 400 mg PO DAILY 12/20/18 12/20/18 Renafood 1 cap PO DAILY 12/20/18 12/20/18 SUMAtriptan succinate [Imitrex] 100 mg PO DAILY PRN 12/20/18 12/20/18 Zolpidem [Ambien] 5 mg PO HS PRN 12/20/18 12/20/18 Previous Rx's Medication Instructions Recorded Acamprosate Calcium [Campral] 666 mg PO TID #30 tablet. 12/24/18 Furosemide [Lasix] 20 mg PO DAILY #30 tab 12/24/18 Nicotine 21Mg/24Hr Patch [Habitrol] 1 patch TRANSDERM DAILY #30 patch 12/24/18 Potassium Chloride ER [K-Dur 10] 10 meq PO DAILY #60 tab.er.prt 12/24/18 Potassium Chloride ER [K-Dur 20] 20 meq PO BID #60 tab.er.prt 12/24/18 Thiamine [Vitamin B-1] 100 mg PO BID-W/MEALS #60 tab 12/24/18 Allergies Allergy/AdvReac Type Severity Reaction Status Date / Time No Known Allergies Allergy Verified 12/18/22 21:42 Review of Systems ROS Statement: Those systems with pertinent positive or pertinent negative responses have been documented in the HPI. ROS Other: All systems not noted in ROS Statement are negative. Past Medical History Past Medical History: GERD/Reflux, Hypertension, Osteoarthritis (OA) Additional Past Medical History / Comment(s): gout History of Any Multi-Drug Resistant Organisms: None Reported Past Surgical History: Cholecystectomy, Tubal Ligation Additional Past Surgical History / Comment(s): carpel tunnel, d & c, polyps removed Past Anesthesia/Blood Transfusion Reactions: No Reported Reaction Past Psychological History: Bipolar Smoking Status: Current every day smoker Past Alcohol Use History: Daily Past Drug Use History: None Reported - Past Family History Father Family Medical History: No Reported History, Unable to Obtain Mother Family Medical History: Hypertension Additional Family Medical History / Comment(s): HTN and bipolar; 2 uncles from suicide with bipolar. General Exam Limitations: no limitations General appearance: alert, in no apparent distress Head exam: Present: atraumatic, normocephalic, normal inspection Eye exam: Present: normal appearance, EOMI Neck exam: Present: normal inspection, full ROM Respiratory exam: Present: normal lung sounds bilaterally. Absent: respiratory distress, wheezes, rales, rhonchi, stridor Cardiovascular Exam: Present: regular rate, normal rhythm, normal heart sounds. Absent: systolic murmur, diastolic murmur, rubs, gallop, clicks GI/Abdominal exam: Present: soft. Absent: distended, tenderness, guarding, rebound, rigid Neurological exam: Present: alert, oriented X3 Psychiatric exam: Present: normal affect, normal mood Skin exam: Present: warm, dry, intact, normal color. Absent: rash Course Vital Signs 12/18/22 12/18/22 21:40 23:10 Temperature 98 F Pulse Rate 80 89 Respiratory 18 18 Rate Blood Pressure 136/82 131/92 O2 Sat by Pulse 99 98 Oximetry Medical Decision Making - Medical Decision Making Was pt. sent in by a medical professional or institution (, PA, STOCK HOUSE WORKER, urgent care, hospital, or senior care...) When possible be specific @ -No Did you speak to anyone other than the patient for history (EMS, parent, family, police, friend...)? What history was obtained from this source @ -No Did you review nursing and triage notes (agree or disagree)? Why? @ -I reviewed and agree with nursing and triage notes Were old charts reviewed (outside hosp., previous admission, EMS record, old EKG, old radiological studies, urgent care reports/EKG's, senior care records)? Report findings @ -No old charts were reviewed Differential Diagnosis (chest pain, altered mental status, abdominal pain women, abdominal pain men, vaginal bleeding, weakness, fever, dyspnea, syncope, headache, dizziness, GI bleed, back pain, seizure, CVA, palpatations, mental health, musculoskeletal)? @ -[facility] Differential Abdominal Pain Women: Appendicitis, Cholecystitis, diverticulosis, ischemic bowel, pancreatitis, hepatitis, UTI, gastroenteritis, AAA, incarcerated hernia, bowel obstruction, constipation, inflammatory bowel, hepatitis, peptic ulcer disease, splenic infarction, perforated viscus, vulvitis, ovarian torsion, PID, kidney stone, placenta abruption... This is not meant to be an all-inclusive list EKG interpreted by me (3pts min.). @ -As above X-rays interpreted by me (1pt min.). @ -[facility] x-ray shows overall nonobstructive bowel gas pattern CT interpreted by me (1pt min.). @ -None done U/S interpreted by me (1pt. min.). @ -None done What testing was considered but not performed or refused? (CT, X-rays, U/S, labs)? Why? @ -None What meds were considered but not given or refused? Why? @ -None Did you discuss the management of the patient with other professionals (professionals i.e. , PA, STOCK HOUSE WORKER, lab, RT, psych nurse, social scientist, dx board operator, teacher, chief operations officer, complex case manager)? Give summary @ -spoke with Dr. shah who accepted admission Was smoking cessation discussed for >3mins.? @ -No Was critical care preformed (if so, how long)? @ -No Were there social determinants of health that impacted care today? How? (Homelessness, low income, unemployed, alcoholism, drug addiction, transportation, low edu. Level, literacy, decrease access to med. care, fci, rehab)? @ -Alcoholism Was there de-escalation of care discussed even if they declined (Discuss DNR or withdrawal of care, Hospice)? DNR status @ -No What co-morbidities impacted this encounter? (DM, HTN, Smoking, COPD, CAD, Cancer, CVA, ARF, Chemo, Hep., AIDS, mental health diagnosis, sleep apnea, morbid obesity)? @ -None Was patient admitted / discharged? Hospital course, mention meds given and rout e, prescriptions, significant lab abnormalities, going to OR and other pertinent info. @ -52-year-old female with history of alcoholism presenting with chief complaint of abdominal pain that started yesterday. Physical exam is conducted. Lab work shows no leukocytosis or anemia. Lipase 935. Transaminitis and elevated alk phos, likely secondary to alcoholism. Potassium 3.1, patient will receive IV replacement. Urine shows no infectious process. Serum alcohol is 363, patient admits to having 10 drinks today. [facility] x-rays negative. Patient will be admitted for pancreatitis. She is started on fluid resuscitation and when necessary pain meds are ordered. Given that this is her first episode of pancreatitis ultrasound is ordered, however most likely cause is her daily alcohol intake. She is agreeable with this plan. I discussed this case with my attending Dr. Mora Undiagnosed new problem with uncertain prognosis? @ -No Drug Therapy requiring intensive monitoring for toxicity (Heparin, Nitro, Insulin, Cardizem)? @ -No Were any procedures done? @ -No Diagnosis/symptom? @ -Pancreatitis Acute, or Chronic, or Acute on Chronic? @ -Acute Uncomplicated (without systemic symptoms) or Complicated (systemic symptoms)? @ -Uncomplicated Side effects of treatment? @ -No Exacerbation, Progression, or Severe Exacerbation? @ -No Poses a threat to life or bodily function? How? (Chest pain, [place], [place], pneumonia, PE, COPD, DKA, ARF, appy, cholecystitis, CVA, Diverticulitis, Homicidal, Suicidal, threat to staff... and all critical care pts) @ -Yes - Lab Data Result diagrams: 12/18/22 22:14 12/18/22 22:14 Lab Results 12/18/22 12/18/22 12/18/22 Range/Units 22:14 22:14 22:14 WBC 8.8 (3.8-10.6) k/uL RBC 4.15 (3.80-5.40) m/uL Hgb 15.4 (11.4-16.0) gm/dL Hct 43.5 (34.0-46.0) % MCV 104.9 H (80.0-100.0) fL MCH 37.0 H (25.0-35.0) pg MCHC 35.3 (31.0-37.0) g/dL RDW 12.5 (11.5-15.5) % Plt Count 125 L (150-450) k/uL MPV 9.0 Neutrophils % 57 % Lymphocytes % 29 % Monocytes % 8 % Eosinophils % 2 % Basophils % 1 % Neutrophils # 5.0 (1.3-7.7) k/uL Lymphocytes # 2.5 (1.0-4.8) k/uL Monocytes # 0.7 (0-1.0) k/uL Eosinophils # 0.2 (0-0.7) k/uL Basophils # 0.1 (0-0.2) k/uL Macrocytosis Slight Sodium 137 (137-145) mmol/L Potassium 3.1 L (3.5-5.1) mmol/L Chloride 97 L (98-107) mmol/L Carbon Dioxide 25 (22-30) mmol/L Anion Gap 15 mmol/L BUN 6 L (7-17) mg/dL Creatinine 0.40 L (0.52-1.04) mg/dL Est GFR (CKD-EPI)AfAm >90 (>60 ml/min/1.73 sqM) Est GFR (CKD-EPI)NonAf >90 (>60 ml/min/1.73 sqM) Glucose 175 H (74-99) mg/dL Plasma Lactic Acid Tamir (0.7-2.0) mmol/L Calcium 9.1 (8.4-10.2) mg/dL Total Bilirubin 0.9 (0.2-1.3) mg/dL AST 72 H (14-36) U/L ALT 50 H (4-34) U/L Alkaline Phosphatase 179 H (38-126) U/L Total Protein 7.8 (6.3-8.2) g/dL Albumin 4.0 (3.5-5.0) g/dL Amylase 54 (30-110) U/L Lipase 935 H (23-300) U/L Urine Color Colorless Urine Appearance Clear (Clear) Urine pH 7.5 (5.0-8.0) Ur Specific [place] 1.003 (1.001-1.035) Urine Protein Negative (Negative) Urine Glucose (UA) Negative (Negative) Urine Ketones Negative (Negative) Urine Blood Negative (Negative) Urine Nitrite Negative (Negative) Urine Bilirubin Negative (Negative) Urine Urobilinogen <2.0 (<2.0) mg/dL Ur Leukocyte Esterase Negative (Negative) Urine Opiates Screen Not Detected (NotDetected) Ur Oxycodone Screen Not Detected (NotDetected) Urine Methadone Screen Not Detected (NotDetected) Ur Propoxyphene Screen Not Detected (NotDetected) Ur Barbiturates Screen Not Detected (NotDetected) U Tricyclic Antidepress Not Detected (NotDetected) Ur Phencyclidine Scrn Not Detected (NotDetected) Ur Amphetamines Screen Not Detected (NotDetected) U Methamphetamines Scrn Not Detected (NotDetected) U Benzodiazepines Scrn Not Detected (NotDetected) Urine Cocaine Screen Not Detected (NotDetected) U Marijuana (THC) Screen Not Detected (NotDetected) Serum Alcohol 363 H* mg/dL 12/18/22 Range/Units 22:14 WBC (3.8-10.6) k/uL RBC (3.80-5.40) m/uL Hgb (11.4-16.0) gm/dL Hct (34.0-46.0) % MCV (80.0-100.0) fL MCH (25.0-35.0) pg MCHC (31.0-37.0) g/dL RDW (11.5-15.5) % Plt Count (150-450) k/uL MPV Neutrophils % % Lymphocytes % % Monocytes % % Eosinophils % % Basophils % % Neutrophils # (1.3-7.7) k/uL Lymphocytes # (1.0-4.8) k/uL Monocytes # (0-1.0) k/uL Eosinophils # (0-0.7) k/uL Basophils # (0-0.2) k/uL Macrocytosis Sodium (137-145) mmol/L Potassium (3.5-5.1) mmol/L Chloride (98-107) mmol/L Carbon Dioxide (22-30) mmol/L Anion Gap mmol/L BUN (7-17) mg/dL Creatinine (0.52-1.04) mg/dL Est GFR (CKD-EPI)AfAm (>60 ml/min/1.73 sqM) Est GFR (CKD-EPI)NonAf (>60 ml/min/1.73 sqM) Glucose (74-99) mg/dL Plasma Lactic Acid Tamir 1.7 (0.7-2.0) mmol/L Calcium (8.4-10.2) mg/dL Total Bilirubin (0.2-1.3) mg/dL AST (14-36) U/L ALT (4-34) U/L Alkaline Phosphatase (38-126) U/L Total Protein (6.3-8.2) g/dL Albumin (3.5-5.0) g/dL Amylase (30-110) U/L Lipase (23-300) U/L Urine Color Urine Appearance (Clear) Urine pH (5.0-8.0) Ur Specific [place] (1.001-1.035) Urine Protein (Negative) Urine Glucose (UA) (Negative) Urine Ketones (Negative) Urine Blood (Negative) Urine Nitrite (Negative) Urine Bilirubin (Negative) Urine Urobilinogen (<2.0) mg/dL Ur Leukocyte Esterase (Negative) Urine Opiates Screen (NotDetected) Ur Oxycodone Screen (NotDetected) Urine Methadone Screen (NotDetected) Ur Propoxyphene Screen (NotDetected) Ur Barbiturates Screen (NotDetected) U Tricyclic Antidepress (NotDetected) Ur Phencyclidine Scrn (NotDetected) Ur Amphetamines Screen (NotDetected) U Methamphetamines Scrn (NotDetected) U Benzodiazepines Scrn (NotDetected) Urine Cocaine Screen (NotDetected) U Marijuana (THC) Screen (NotDetected) Serum Alcohol mg/dL Disposition Clinical Impression: Pancreatitis Disposition: ADMITTED IP TO THIS [facility] Condition: Fair Time of Disposition: 23:41
[2022-12-19] MEDS ORDERED: POTASSIUM CHLORIDE ER 20 MEQ TAB.ER PO SCH
[2022-12-19] MEDS ORDERED: POTASSIUM CHLORIDE 10 MEQ in WATER FOR INJECTION 1 100ML.BAG IVPB SCH
[2022-12-19] MEDS ORDERED: CALCIUM CARBONATE 500 MG CHEWABLE PO PRN (00:10)
[2022-12-19] MEDS ORDERED: MAG HYDROX/AL HYDROX/SIMETH 30 ML CUP PO PRN (00:10)
[2022-12-19] MEDS ORDERED: ACETAMINOPHEN TAB 325 MG TAB PO PRN (00:10)
[2022-12-19] MEDS ORDERED: LOPERAMIDE 2 MG CAP PO PRN (00:10)
[2022-12-19] MEDS: SODIUM CHLORIDE 0.9% 2,000 ML IV ONE ×2 (01:01→01:21)
[2022-12-19] MEDS: KETOROLAC 15 MG/ML 1 ML VIAL IVP SCH ×4 (01:09→17:42)
[2022-12-19] MEDS: POTASSIUM CHLORIDE 10 MEQ in WATER FOR INJECTION 1 100ML.BAG IVPB SCH ×4 (01:11→04:28)
[2022-12-19] MEDS: SODIUM CHLORIDE 0.9% 1,000 ML IV SCH ×3 (01:12→17:42)
[2022-12-19 06:47] LABS: Basophils % (A) 0 %; Eosinophils # (A) 0.1 k/uL (0-0.7); Eosinophils % (A) 2 %; HCT 37.7 % (34.0-46.0); HGB 12.6 gm/dL (11.4-16.0); Lymphocytes # (A) 1.6 k/uL (1.0-4.8); Lymphocytes % (A) 35 %; MCH 36.5 pg (25.0-35.0); MCHC 33.4 g/dL (31.0-37.0); MCV 109.2 fL (80.0-100.0); Macrocytosis Moderate; Mean Platelet Volume 8.7; Monocytes # (A) 0.4 k/uL (0-1.0); Monocytes % (A) 10 %; Neutrophils # (A) 2.2 k/uL (1.3-7.7); Neutrophils % (A) 49 %; RBC 3.45 m/uL (3.80-5.40); RDW 12.7 % (11.5-15.5); WBC 4.5 k/uL (3.8-10.6)
[2022-12-19 07:21] LABS: Platelet Count 72 k/uL (150-450)
[2022-12-19 07:23] LABS: ALT 34 U/L (4-34); AST 50 U/L (14-36); African American GFR (CKD) >90 (>60 ml/min/1.73 sqM); Albumin 2.7 g/dL (3.5-5.0); Alkaline Phosphatase 116 U/L (38-126); Anion Gap 9 mmol/L; Blood Urea Nitrogen 4 mg/dL (7-17); Carbon Dioxide 21 mmol/L (22-30); Chloride 105 mmol/L (98-107); Glucose 240 mg/dL (74-99); Lipase 494 U/L (23-300); Non-African American GFR(CKD) >90 (>60 ml/min/1.73 sqM); Potassium 3.1 mmol/L (3.5-5.1); Sodium 135 mmol/L (137-145); Total Bilirubin 0.8 mg/dL (0.2-1.3); Total Protein 5.7 g/dL (6.3-8.2)
--- NOTE | 2022-12-19 08:40 | US ---
EXAMINATION TYPE: US abdomen limited DATE OF EXAM: 12/19/2022 COMPARISON: CT 2019 CLINICAL INDICATION: Female, 52 years old with history of pancreatitis; TECHNIQUE: Multiple sonographic images of the right upper quadrant are obtained. FINDINGS: EXAM MEASUREMENTS: Liver Length: 16.8 cm CBD: 0.70 cm Right Kidney: 11.6 x 5.8 x 5.2 cm POURED WALL FOREMAN NOTES: Pancreas: Bulky appearance Liver: Increased attenuation, decreased visualization of vessels suggestive of fatty infiltrate Gallbladder: Surgically absent CBD: wnl Right Kidney: Indeterminate hypoechoic area measuring 2.8 x 2.0 x 2.1 cm IMPRESSION: 1. The pancreas is prominent in size without evidence of discrete lesion. Recommend correlation with pancreatic enzymes. 2. Findings in the liver suggest cirrhosis or underlying cellular disease. 3. Indeterminate lower pole right renal lesion. Recommend CT scan of the abdomen to assess for potent ial solid lesion
[2022-12-19] MEDS ORDERED: POTASSIUM CHLORIDE 20 MEQ in WATER FOR INJECTION 1 100ML.BAG IVPB STA (10:06)
[2022-12-19] MEDS: THIAMINE 100 MG TAB PO SCH (11:26)
[2022-12-19] MEDS: POTASSIUM CHLORIDE ER 20 MEQ TAB.ER PO SCH ×2 (11:38→13:35)
[2022-12-19] MEDS: NICOTINE 14MG/24HR PATCH TRANSDERM SCH (18:53)
--- NOTE | 2022-12-19 23:17 | P.HPIM ---
History of Present Illness H&P Date: 12/19/22 Chief Complaint: Abdominal pain Patient is a 52-year-old female with a past medical history of hypertension, GERD, osteoarthritis, bipolar disorder and currently everyday smoker and daily alcohol use presents to ER with complaints of abdominal pain. Abdominal pain is mainly in the mid abdomen and also diffuse on admission. States that she has been having abdominal pain since yesterday. Denies any nausea or vomiting or diarrhea. Otherwise patient was intoxicated on admission. Patient states that she drinks about 8 drinks of vodka especially in the Sundays. Denies any chest pain or shortness of breath. No headache or dizziness or lightheadedness. Denies any fever or chills. Denies any recent illnesses. [facility] x-ray showed overall nonobstructive bowel gas pattern. Ultrasound abdomen showed the pancreas is prominent in size without evidence of discrete lesion. Recommend correlation with pancreatic enzymes. Findings in the liver suggest cirrhosis or underlying cellular disease. Intermediate lower pole right renal lesion. Recommend CT scan of the abdomen to assess for potential solid lesion. Laboratory data showed WBC 8.8 hemoglobin 15.4 and platelets 125 MCV 104.9. Sodium 137 potassium 3.1 chloride 97 bicarb is 25 BUN 16 creatinine 0.4 and blood sugar 175. AST 72 ALT 50 alk phos 179 and lipase level is 935 and inpatient urinalysis negative for infection. Serum alcohol level is 363. Review of Systems Constitutional: Patient denies any fever or chills . No generalized weakness or weight loss. Abdomen: Patient denied nausea vomiting and diarrhea. Patient does have abdominal pain. Cardiovascular: Patient denies any chest pain or short of breath no palpitations. Respiratory: patient denied any cough or sputum production. No shortness of breath Neurologic: Patient denied any numbness or tingling headache. Musculoskeletal: Patient denies any complaints of joint swelling or deformity. Skin: Negative Psychiatric: Negative Endocrine: No heat or cold intolerance. No recent weight gain. Genitourinary: No dysuria or hematuria. All other 14 point ROS negative except the above Past Medical History Past Medical History: GERD/Reflux, Hypertension, Osteoarthritis (OA) Additional Past Medical History / Comment(s): gout History of Any Multi-Drug Resistant Organisms: None Reported Past Surgical History: Cholecystectomy, Tubal Ligation Additional Past Surgical History / Comment(s): carpel tunnel, d & c, polyps removed Past Anesthesia/Blood Transfusion Reactions: No Reported Reaction Past Psychological History: Bipolar Smoking Status: Current every day smoker Past Alcohol Use History: Daily Past Drug Use History: None Reported - Past Family History Father Family Medical History: No Reported History, Unable to Obtain Mother Family Medical History: Hypertension Additional Family Medical History / Comment(s): HTN and bipolar; 2 uncles from suicide with bipolar. Medications and Allergies Home Medications Medication Instructions Recorded Confirmed Type Acyclovir [Zovirax] 800 mg PO DAILY 06/05/15 12/19/22 History Omeprazole 20 mg PO DAILY 06/05/15 12/19/22 History allopurinoL [Zyloprim] 300 mg PO DAILY 06/05/15 12/19/22 History Metoprolol Tartrate [Lopressor] 50 mg PO DAILY 06/29/17 12/19/22 History Cholecalciferol [Vitamin D3 (25 5,000 unit PO DAILY 12/20/18 12/19/22 History Mcg = 1000 Iu)] Magnesium Oxide [Mag-Ox] 400 mg PO DAILY 12/20/18 12/19/22 History Cinnamon Bark [Cinnamon] 500 mg PO DAILY 12/19/22 12/19/22 History Spironolactone [Aldactone] 50 mg PO DAILY 12/19/22 12/19/22 History hydroCHLOROthiazide [Hydrodiuril] 50 mg PO DAILY 12/19/22 12/19/22 History sitaGLIPtin [Januvia] 100 mg PO DAILY 12/19/22 12/19/22 History Allergies Allergy/AdvReac Type Severity Reaction Status Date / Time No Known Allergies Allergy Verified 12/19/22 07:54 Physical Exam Vitals: Vital Signs Temp Pulse Resp BP Pulse Ox 12/19/22 06:53 98.6 F 94 18 122/86 98 12/18/22 23:10 89 18 131/92 98 12/18/22 21:40 98 F 80 18 136/82 99 Intake and Output 12/18/22 12/19/22 12/19/22 22:59 06:59 14:59 Other: Weight 64.864 kg PHYSICAL EXAMINATION: Patient is lying in the bed comfortably, no acute distress, awake alert and oriented.. HEENT: Normocephalic. Neck is supple. Pupils reactive. Nostrils clear. Oral cavity is moist. Neck reveals no JVD, carotid bruits, or thyromegaly. CHEST EXAMINATION: Trachea is central. Symmetrical expansion. Lung price clear to auscultation and percussion. Bibasilar diminished sounds. CARDIAC: Normal S1, S2 with no gallops. No murmurs ABDOMEN: Soft. Bowel sounds normal. Mild epigastric tenderness. No organomegaly. No abdominal bruits. Extremities: reveal no edema. No clubbing or cyanosis Neurologically awake, alert, oriented x3 with well-coordinated movements. No focal deficits noted Skin: No rash or skin lesions. Psychiatric: Cooperative. Nonsuicidal Musculoskeletal: No joint swelling or deformity. Normal range of motion. Results CBC & Chem 7: 12/19/22 06:05 12/19/22 17:48 Labs: Abnormal Lab Results - Last 24 Hours (Table) 12/18/22 12/18/22 12/19/22 Range/Units 22:14 22:14 06:05 RBC 3.45 L (3.80-5.40) m/uL MCV 104.9 H 109.2 H (80.0-100.0) fL MCH 37.0 H 36.5 H (25.0-35.0) pg Plt Count 125 L 72 L (150-450) k/uL Sodium (137-145) mmol/L Potassium 3.1 L (3.5-5.1) mmol/L Chloride 97 L (98-107) mmol/L Carbon Dioxide (22-30) mmol/L BUN 6 L (7-17) mg/dL Creatinine 0.40 L (0.52-1.04) mg/dL Glucose 175 H (74-99) mg/dL Calcium (8.4-10.2) mg/dL AST 72 H (14-36) U/L ALT 50 H (4-34) U/L Alkaline Phosphatase 179 H (38-126) U/L Total Protein (6.3-8.2) g/dL Albumin (3.5-5.0) g/dL Lipase 935 H (23-300) U/L Serum Alcohol 363 H* mg/dL 12/19/22 Range/Units 06:05 RBC (3.80-5.40) m/uL MCV (80.0-100.0) fL MCH (25.0-35.0) pg Plt Count (150-450) k/uL Sodium 135 L (137-145) mmol/L Potassium 3.1 L (3.5-5.1) mmol/L Chloride (98-107) mmol/L Carbon Dioxide 21 L (22-30) mmol/L BUN 4 L (7-17) mg/dL Creatinine 0.38 L (0.52-1.04) mg/dL Glucose 240 H (74-99) mg/dL Calcium 7.0 L (8.4-10.2) mg/dL AST 50 H (14-36) U/L ALT (4-34) U/L Alkaline Phosphatase (38-126) U/L Total Protein 5.7 L (6.3-8.2) g/dL Albumin 2.7 L (3.5-5.0) g/dL Lipase 494 H (23-300) U/L Serum Alcohol mg/dL Thrombosis Risk Factor Assmnt - DVT/VTE Prophylaxis DVT/VTE Prophylaxis: Pharmacologic Prophylaxis ordered Assessment and Plan Assessment: Acute pancreatitis without lipase level 935. Likely alcohol-related Abdominal pain secondary above Acute alcohol intoxication on admission Elevated liver enzymes with hepatocellular disease/cirrhosis as per ultrasound report Hypokalemia Hyperglycemia. Follow-up A1c level Right lower pole renal lesion. Outpatient follow-up with CT of the abdomen pelvis. Severe alcohol abuse Ongoing nicotine addiction Hypertension GERD DVT prophylaxis with heparin subcu Plan: Patient will be continued on IV hydration and pain medications. N.p.o. until pain gets better. Replace electrolytes and continue to monitor for alcohol withdrawal symptoms. Follow-up CBC BMP. Continue with thiamine and multivitamins. Smoking cessation and alcohol abstinence has been counseled extensively. Started back on home blood pressure medications. Hydrochlorothiazide is on hold. Continue to follow closely. Time with Patient: Greater than 30
[2022-12-20] MEDS: SODIUM CHLORIDE 0.9% 1,000 ML IV SCH ×2 (00:18→10:40)
[2022-12-20] MEDS: HEPARIN SODIUM,PORCINE 5,000 UNIT/ML 1 ML VIAL SQ SCH ×2 (00:38→10:39)
[2022-12-20] MEDS: KETOROLAC 15 MG/ML 1 ML VIAL IVP SCH ×3 (00:39→12:51)
[2022-12-20 06:37] LABS: Basophils % (A) 1 %; Eosinophils % (A) 2 %; HCT 39.5 % (34.0-46.0); HGB 13.3 gm/dL (11.4-16.0); Lymphocytes # (A) 0.9 k/uL (1.0-4.8); Lymphocytes % (A) 34 %; MCHC 33.7 g/dL (31.0-37.0); MCV 109.8 fL (80.0-100.0); Macrocytosis Marked; Mean Platelet Volume 9.4; Monocytes # (A) 0.2 k/uL (0-1.0); Monocytes % (A) 7 %; Neutrophils # (A) 1.4 k/uL (1.3-7.7); Neutrophils % (A) 54 %; Platelet Count 51 k/uL (150-450); RDW 12.6 % (11.5-15.5); WBC 2.5 k/uL (3.8-10.6)
[2022-12-20 06:59] LABS: African American GFR (CKD) >90 (>60 ml/min/1.73 sqM); Anion Gap 4 mmol/L; Blood Urea Nitrogen 3 mg/dL (7-17); Calcium 7.7 mg/dL (8.4-10.2); Carbon Dioxide 26 mmol/L (22-30); Chloride 107 mmol/L (98-107); Glucose 96 mg/dL (74-99); Non-African American GFR(CKD) >90 (>60 ml/min/1.73 sqM); Potassium 3.8 mmol/L (3.5-5.1); Sodium 137 mmol/L (137-145)
[2022-12-20] MEDS ORDERED: MULTIVITAMINS, THERA 1 EACH TAB PO SCH (09:00)
[2022-12-20] MEDS ORDERED: METOPROLOL TARTRATE 50 MG TAB PO SCH (09:00)
[2022-12-20] MEDS ORDERED: allopurinoL 300 MG TAB PO SCH (09:00)
[2022-12-20] MEDS ORDERED: PANTOPRAZOLE 40 MG TABLET PO SCH (09:00)
[2022-12-20] MEDS: THIAMINE 100 MG TAB PO SCH (10:39)
[2022-12-20] MEDS: NICOTINE 14MG/24HR PATCH TRANSDERM SCH (10:39)
[2022-12-20 11:41] VITALS: BP 125/76; PULSE 66; RESP 18; TEMP 98.6
--- NOTE | 2022-12-21 21:30 | P.DS ---
Providers Date of admission: 12/18/22 23:25 Expected date of discharge: 12/20/22 Attending physician: Leland Rodriguez MD Primary care physician: Prashant Ha [facility] Hospital Course: Discharge diagnosis Acute pancreatitis with lipase level 935. Likely alcohol-related Abdominal pain secondary above. improved Acute alcohol intoxication on admission Elevated liver enzymes with hepatocellular disease/cirrhosis as per ultrasound report Thrombocytopenia Hypokalemia. replaced Hyperglycemia. Follow-up A1c level. 6.0 Right lower pole renal lesion. Outpatient follow-up with CT of the abdomen pelvis. Severe alcohol abuse Ongoing nicotine addiction Hypertension GERD DVT prophylaxis with heparin subcu Hospital course Patient is a 52-year-old female with a past medical history of hypertension, GERD, osteoarthritis, bipolar disorder and currently everyday smoker and daily alcohol use presents to ER with complaints of abdominal pain. Abdominal pain is mainly in the mid abdomen and also diffuse on admission. States that she has been having abdominal pain since yesterday. Denies any nausea or vomiting or diarrhea. Otherwise patient was intoxicated on admission. Patient states that she drinks about 8 drinks of vodka especially in the Sundays. Denies any chest pain or shortness of breath. No headache or dizziness or lightheadedness. Denies any fever or chills. Denies any recent illnesses. KUB x-ray showed overall nonobstructive bowel gas pattern. Ultrasound abdomen showed the pancreas is prominent in size without evidence of discrete lesion. Recommend correlation with pancreatic enzymes. Findings in the liver suggest cirrhosis or underlying cellular disease. Intermediate lower pole right renal lesion. Recommend CT scan of the abdomen to assess for potential solid lesion. Laboratory data showed WBC 8.8 hemoglobin 15.4 and platelets 125 MCV 104.9. Sodium 137 potassium 3.1 chloride 97 bicarb is 25 BUN 16 creatinine 0.4 and blood sugar 175. AST 72 ALT 50 alk phos 179 and lipase level is 935 and inpatient urinalysis n egative for infection. Serum alcohol level is 363. 12/20/2022 Patient is currently sitting in the recliner. Awake alert and oriented x3. on room air. Abdominal pain is almost resolved. Was able to tolerate breakfast this morning. No complaints of chest pain or shortness of breath. No nausea vomiting or abdominal pain or diarrhea. No cough or sputum production. Laboratory data showed lipase level is trending down. B12 and folate within normal limits. TSH within normal limits. Other laboratory showed WBC 2.5 hemoglobin 13.3 and platelets 51 today. BUN 3 and creatinine 0.37. Blood pressure medication will be on hold at home until follow-up with primary care physician. Patient was counseled extensively for alcohol abstinence. Recommend to follow with primary care physician in the next 1 to 3 days. Patient was able to tolerate lunch very well. No nausea vomiting or abdominal pain. Patient is being discharged today. PHYSICAL EXAMINATION: Patient is lying in the bed comfortably, no acute distress, awake alert and oriented.. HEENT: Normocephalic. Neck is supple. Pupils reactive. Nostrils clear. Oral cavity is moist. Neck reveals no JVD, carotid bruits, or thyromegaly. CHEST EXAMINATION: Trachea is central. Symmetrical expansion. Lung price clear to auscultation and percussion. Bibasilar diminished sounds. CARDIAC: Normal S1, S2 with no gallops. No murmurs ABDOMEN: Soft. Bowel sounds normal. Mild epigastric tenderness. No organomegaly. No abdominal bruits. Extremities: reveal no edema. No clubbing or cyanosis Neurologically awake, alert, oriented x3 with well-coordinated movements. No focal deficits noted Skin: No rash or skin lesions. Psychiatric: Cooperative. Nonsuicidal Musculoskeletal: No joint swelling or deformity. Normal range of motion. Discharge vitals reviewed. Vital Signs (72 hours) 12/18/22 12/18/22 12/19/22 21:40 23:10 06:53 Temperature 98 F 98.6 F Pulse Rate 80 89 94 Pulse Rate [ Pulse Oximetery ] Respiratory 18 18 18 Rate Blood Pressure 136/82 131/92 122/86 Blood Pressure [Left Arm] O2 Sat by Pulse 99 98 98 Oximetry 12/19/22 12/19/22 12/19/22 08:10 14:15 14:24 Temperature 98.2 F 98.2 F Pulse Rate 92 92 Pulse Rate [ 89 Pulse Oximetery ] Respiratory 16 18 18 Rate Blood Pressure 130/72 130/72 Blood Pressure 123/97 [Left Arm] O2 Sat by Pulse 97 98 98 Oximetry 12/19/22 12/19/22 12/19/22 14:45 20:00 21:08 Temperature 97.2 F L 98.1 F Pulse Rate Pulse Rate [ 74 81 81 Pulse Oximetery ] Respiratory 19 18 18 Rate Blood Pressure Blood Pressure 128/80 121/61 [Left Arm] O2 Sat by Pulse 98 100 Oximetry 12/20/22 12/20/22 01:28 11:31 Temperature 98.6 F Pulse Rate Pulse Rate [ 76 66 Pulse Oximetery ] Respiratory 16 18 Rate Blood Pressure Blood Pressure 115/78 125/76 [Left Arm] O2 Sat by Pulse 97 98 Oximetry Patient Condition at Discharge: Fair Plan - Discharge Summary Discharge Rx Participant: Yes New Discharge Prescriptions: New Multivitamins, Thera [Multivitamin (formulary)] 1 each PO DAILY #30 tab Thiamine [Vitamin B-1] 100 mg PO DAILY #30 tab Continue Omeprazole 20 mg PO DAILY allopurinoL [Zyloprim] 300 mg PO DAILY Acyclovir [Zovirax] 800 mg PO DAILY Metoprolol Tartrate [Lopressor] 50 mg PO DAILY Cholecalciferol [Vitamin D3 (25 Mcg = 1000 Iu)] 5,000 unit PO DAILY Magnesium Oxide [Mag-Ox] 400 mg PO DAILY sitaGLIPtin [Januvia] 100 mg PO DAILY Cinnamon Bark [Cinnamon] 500 mg PO DAILY Discontinued Spironolactone [Aldactone] 50 mg PO DAILY hydroCHLOROthiazide [Hydrodiuril] 50 mg PO DAILY Discharge Medication List Acyclovir [Zovirax] 800 mg PO DAILY 06/05/15 [History] Omeprazole 20 mg PO DAILY 06/05/15 [History] allopurinoL [Zyloprim] 300 mg PO DAILY 06/05/15 [History] Metoprolol Tartrate [Lopressor] 50 mg PO DAILY 06/29/17 [History] Cholecalciferol [Vitamin D3 (25 Mcg = 1000 Iu)] 5,000 unit PO DAILY 12/20/18 [History] Magnesium Oxide [Mag-Ox] 400 mg PO DAILY 12/20/18 [History] Cinnamon Bark [Cinnamon] 500 mg PO DAILY 12/19/22 [History] sitaGLIPtin [Januvia] 100 mg PO DAILY 12/19/22 [History] Multivitamins, Thera [Multivitamin (formulary)] 1 each PO DAILY #30 tab 12/20/22 [Rx] Thiamine [Vitamin B-1] 100 mg PO DAILY #30 tab 12/20/22 [Rx] Follow up Appointment(s)/Referral(s): Prashant Ha DO [Primary Care Provider] - 12/30/22 8:45 am (previous scheduled appointment) Patient Instructions/Handouts: Thiamine (By mouth), Multivitamins with Minerals (By mouth), Pancreatitis (DC) Discharge Disposition: HOME SELF-CARE
== END 2022-12-20 15:47 | disposition home or self-care (01) ==
LOC: EC 21:12 → 6NMEDSUR 23:25 → 1SOBS 12-19 12:39
PROVIDERS: ADMIT Internal Medicine; ATTEND Internal Medicine
DX: K85.90 Acute pancreatitis without necrosis or infection, unspecified (principal); F10.229 Alcohol dependence with intoxication, unspecified; Y90.8 Blood alcohol level of 240 mg/100 ml or more; E87.6 Hypokalemia; R73.9 Hyperglycemia, unspecified; I10 Essential (primary) hypertension; K21.9 Gastro-esophageal reflux disease without esophagitis; K74.60 Unspecified cirrhosis of liver; K76.89 Other specified diseases of liver; D69.6 Thrombocytopenia, unspecified; M19.90 Unspecified osteoarthritis, unspecified site; M10.9 Gout, unspecified; N28.9 Disorder of kidney and ureter, unspecified; F17.200 Nicotine dependence, unspecified, uncomplicated; F31.9 Bipolar disorder, unspecified; Z79.82 Long term (current) use of aspirin; Z79.84 Long term (current) use of oral hypoglycemic drugs; Z79.899 Other long term (current) drug therapy; Z71.41 Alcohol abuse counseling and surveillance of alcoholic; Z71.6 Tobacco abuse counseling; Z90.49 Acquired absence of other specified parts of digestive tract; Z98.51 Tubal ligation status; Z98.890 Other specified postprocedural states; Z82.49 Family history of ischemic heart disease and other diseases of the circulatory system; Z81.8 Family history of other mental and behavioral disorders
CPT/HCPCS: 96361 ×4; 96372 ×2; 96376 ×3; 96365; 96366; 96375; 99285; 36415; 82747; 80053 ×2; 80048; 84443; 82607; 82150; 83605; 83690 ×2; 84132; 85025 ×3; 81003; 80306; 80320; 83036; 74018; 76705; G0378 ×4; S4990 ×2; J2060; J1644; J3411; J3480; J1885 ×2

== ENCOUNTER → 2023-01-20 | Outpatient (CLI) | payer OTHER ==
[2023-01-20 18:46] LABS: Hepatitis B Surface Antigen Nonreactive; Hepatitis C IgG Antibody Nonreactive
[2023-01-20 18:53] LABS: ALT 45 U/L (8-44); AST 69 U/L (13-35); Albumin 3.7 g/dL (3.8-4.9); Alkaline Phosphatase 105 U/L (41-126); BUN/Creat Ratio 23.33 Ratio (12.00-20.00); Calcium 9.4 mg/dL (8.7-10.3); Carbon Dioxide 29.7 mmol/L (21.6-31.8); Chloride 97 mmol/L (96-109); Globulin 3.7 g/dL (1.6-3.3); Glucose 85 mg/dL (70-110); Potassium 3.7 mmol/L (3.5-5.5); Sodium 137 mmol/L (135-145); Total Bilirubin 0.7 mg/dL (0.3-1.2); Total Protein 7.4 g/dL (6.2-8.2)
[2023-01-21 02:09] LABS: Basophils # (A) 0.07 X 10*3/uL (0.00-0.10); Basophils % (A) 0.7 %; Eosinophils # (A) 0.11 X 10*3/uL (0.04-0.35); Eosinophils % (A) 1.1 %; HCT 44.8 % (37.2-46.3); HGB 15.1 g/dL (12.0-15.0); Lymphocytes # (A) 2.74 X 10*3/uL (0.90-5.00); Lymphocytes % (A) 27.3 %; MCH 35.3 pg (27.0-32.0); MCHC 33.7 g/dL (32.0-37.0); MCV 104.7 FL (80.0-97.0); Mean Platelet Volume 11.7 FL (9.5-12.2); Monocytes # (A) 1.13 X 10*3/uL (0.20-1.00); Monocytes % (A) 11.2 %; NRBC Per 100 WBC 0 X 10*3/uL (0.00-0.01); Neutrophils # (A) 5.98 X 10*3/uL (1.80-7.70); Neutrophils % (A) 59.5 %; Platelet Count 141 X 10*3/uL (140-440); RBC 4.28 X 10*6/uL (4.10-5.20); RDW 12.7 % (11.5-14.5); WBC 10.05 X 10*3/uL (4.50-10.00)
== END | disposition home or self-care (01) ==
LOC: LABWHC1 12:51
PROVIDERS: ATTEND Internal Medicine Gastroenterology
DX: K70.30 Alcoholic cirrhosis of liver without ascites (principal)
CPT/HCPCS: 36415; 80053; 82105; 85025; 86803; 87340

== ENCOUNTER → 2023-01-20 | Outpatient (CLI) | payer OTHER ==
[2023-01-20 12:27] LABS: African American GFR (CKD) >90 (>60 ml/min/1.73 sqM); Blood Urea Nitrogen 15 mg/dL (7-17); Non-African American GFR(CKD) >90 (>60 ml/min/1.73 sqM)
--- NOTE | 2023-01-20 13:09 | CT ---
EXAMINATION TYPE: CT abdomen w con DATE OF EXAM: 01/20/2023 COMPARISON: 05/18/2018 HISTORY: f/u cirrhosis of liver and pancreatitis CT DLP: 768 mGycm Automated exposure control for dose reduction was used. TECHNIQUE: Helical acquisition of images was performed from the lung bases through the top of iliac crest to include entire abdomen. CONTRAST: Performed with Oral Contrast and with IV Contrast, patient injected with 100 mL of Isovue 300. FINDINGS: The visualized lung bases are clear. There are surgical absence of the gallbladder. There is no focal mass or organomegaly involving the liver, pancreas, spleen or adrenal glands. There is no solid renal mass or hydronephrosis. There is a tiny simple cortical cyst of the right kid riky and a small exophytic cyst of the left kidney. There is no retroperitoneal adenopathy or hemorrhage in the caliber the abdominal aorta is normal. The bowel loops are normal in caliber is no dilatation or obstruction. No inflammatory changes are id entified in the bowel wall or mesentery. There is no free intraperitoneal air or fluid. Visualized osseous structures are intact. IMPRESSION: No significant abnormality seen.
== END | disposition home or self-care (01) ==
LOC: RADCTMAIN 11:48
PROVIDERS: ATTEND Family Medicine
DX: K74.60 Unspecified cirrhosis of liver (principal); K85.90 Acute pancreatitis without necrosis or infection, unspecified
CPT/HCPCS: 82565; 84520; 74160; 36415; Q9967

== ENCOUNTER 2023-02-08 23:49 | Observation (INO) | payer OTHER ==
[2023-02-09 00:53] LABS: Basophils % (A) 0 %; Eosinophils # (A) 0.1 k/uL (0-0.7); Eosinophils % (A) 1 %; HCT 42.1 % (34.0-46.0); HGB 14.5 gm/dL (11.4-16.0); Lymphocytes # (A) 1.1 k/uL (1.0-4.8); Lymphocytes % (A) 14 %; MCH 35.1 pg (25.0-35.0); MCHC 34.4 g/dL (31.0-37.0); Mean Platelet Volume 8.1; Monocytes # (A) 0.6 k/uL (0-1.0); Monocytes % (A) 8 %; Neutrophils # (A) 6.1 k/uL (1.3-7.7); Neutrophils % (A) 75 %; RBC 4.13 m/uL (3.80-5.40); RDW 12.5 % (11.5-15.5); WBC 8.1 k/uL (3.8-10.6)
[2023-02-09 00:56] LABS: INR 1.1 (<1.2); Partial Thromboplastin Time 25.5 sec (22.0-30.0); Prothrombin Time 11.7 sec (10.0-12.5)
[2023-02-09 01:00] LABS: ALT 28 U/L (4-34); AST 32 U/L (14-36); African American GFR (CKD) >90 (>60 ml/min/1.73 sqM); Albumin 3.4 g/dL (3.5-5.0); Alkaline Phosphatase 88 U/L (38-126); Anion Gap 9 mmol/L; Blood Urea Nitrogen 15 mg/dL (7-17); Calcium 8.8 mg/dL (8.4-10.2); Carbon Dioxide 27 mmol/L (22-30); Chloride 98 mmol/L (98-107); Glucose 208 mg/dL (74-99); Magnesium 1.5 mg/dL (1.6-2.3); Non-African American GFR(CKD) >90 (>60 ml/min/1.73 sqM); Potassium 3.5 mmol/L (3.5-5.1); Sodium 134 mmol/L (137-145); Total Bilirubin 0.8 mg/dL (0.2-1.3); Total Protein 7.1 g/dL (6.3-8.2)
[2023-02-09 01:02] LABS: Platelet Count 130 k/uL (150-450)
[2023-02-09] MEDS ORDERED: ASPIRIN 81 MG PO STA (01:05)
--- NOTE | 2023-02-09 01:23 | XR ---
EXAM: XR Chest, 2 Views CLINICAL HISTORY: Chest Pain TECHNIQUE: Frontal and lateral views of the chest. COMPARISON: Chest 2 views dated 12/20/2018 FINDINGS: Lungs: Unremarkable. No consolidation. The pulmonary vasculature demonstrates no significant radiographic abnormality. Pleural space: Unremarkable. No pneumothorax. No large pleural effusion. Heart: Unremarkable. No cardiomegaly. Mediastinum: The mediastinal contours are stable and unremarkable. The trachea is midline. Bones/joints: Unremarkable. No acute fracture. IMPRESSION: No acute cardiopulmonary process or significant alteration when compared to the previous examination.
--- NOTE | 2023-02-09 01:46 | ED ---
General Adult HPI - General Chief complaint: Chest Pain Stated complaint: Chest Pain, CECELIA Time Seen by Provider: 02/09/23 00:49 Source: patient, RN notes reviewed, old records reviewed Mode of arrival: wheelchair Limitations: no limitations - History of Present Illness Initial comments: Patient is a 52-year-old female presents emergency Department complaining of chest pain. States pain began at approximate 6:30 PM and lasted until shortly prior to arrival. Describes it as sharp, severe pain located over the center of her chest with some radiation up towards her throat and somewhat a little bit towards her back. Pain has all but resolved at this time except for mild pleuritic chest pain with deep inspiration. Endorses some mild dyspnea but no significant shortness of breath. Denies any abdominal pain, nausea, vomiting. Denies any history of blood clots or lower extremity edema. Denies any cardiac history for herself. Does have a history of diabetes, hypertension, smoking. His no other acute complaints at this time. Presents for further evaluation at this time. - Related Data Home Medications Medication Instructions Recorded Confirmed Acyclovir [Zovirax] 800 mg PO DAILY 06/05/15 12/19/22 Omeprazole 20 mg PO DAILY 06/05/15 12/19/22 allopurinoL [Zyloprim] 300 mg PO DAILY 06/05/15 12/19/22 Metoprolol Tartrate [Lopressor] 50 mg PO DAILY 06/29/17 12/19/22 Cholecalciferol [Vitamin D3 (25 5,000 unit PO DAILY 12/20/18 12/19/22 Mcg = 1000 Iu)] Magnesium Oxide [Mag-Ox] 400 mg PO DAILY 12/20/18 12/19/22 Cinnamon Bark [Cinnamon] 500 mg PO DAILY 12/19/22 12/19/22 sitaGLIPtin [Januvia] 100 mg PO DAILY 12/19/22 12/19/22 Previous Rx's Medication Instructions Recorded Multivitamins, Thera [Multivitamin 1 each PO DAILY #30 tab 12/20/22 (formulary)] Thiamine [Vitamin B-1] 100 mg PO DAILY #30 tab 12/20/22 Allergies Allergy/AdvReac Type Severity Reaction Status Date / Time No Known Allergies Allergy Verified 02/09/23 00:15 Review of Systems ROS Statement: Those systems with pertinent positive or pertinent negative responses have been documented in the HPI. Review of Systems: CONST: Denies fever EYES: Denies blurry vision ENT: Denies nasal congestion C/V: Endorses pleuritic chest pain RESP: Denies shortness of breath GI: Denies abdominal pain : Denies dysuria SKIN: Denies rash. MSK: Denies joint pain. NEURO: Denies headache ROS Other: All systems not noted in ROS Statement are negative. Past Medical History Past Medical History: Diabetes Mellitus, GERD/Reflux, Hypertension, Osteoarthritis (OA) Additional Past Medical History / Comment(s): gout History of Any Multi-Drug Resistant Organisms: None Reported Past Surgical History: Cholecystectomy, Tubal Ligation Additional Past Surgical History / Comment(s): carpel tunnel, d & c, polyps removed Past Anesthesia/Blood Transfusion Reactions: No Reported Reaction Past Psychological History: Bipolar Smoking Status: Current every day smoker Past Alcohol Use History: Daily Past Drug Use History: None Reported - Past Family History Father Family Medical History: No Reported History, Unable to Obtain Mother Family Medical History: Hypertension Additional Family Medical History / Comment(s): HTN and bipolar; 2 uncles from suicide with bipolar. General Exam - General Exam Comments Initial Comments: General: Appears in no acute distress. HEAD: Normal with no signs of head trauma. EYES: PERRLA, EOMI, conjunctiva normal, no discharge. ENT: Hearing grossly intact, normal oropharynx. RESPIRATORY: Clear breath sounds bilaterally. No wheezes, rales, or rhonchi. C/V: Regular rate and rhythm. S1 and S2 auscultated, no edema, peripheral pulses 2+ and intact throughout ABD: Abd is soft, nontender, nondistended EXT: Normal range of motion, no obvious deformity SKIN: No rashes or lesions observed on exposed skin. NEURO: Alert and oriented 4. Limitations: no limitations Course Vital Signs 02/09/23 02/09/23 00:11 01:15 Temperature 98.0 F Pulse Rate 96 96 Respiratory 18 18 Rate Blood Pressure 108/73 108/68 O2 Sat by Pulse 98 98 Oximetry Medical Decision Making - Medical Decision Making Was pt. sent in by a medical professional or institution (, PA, SALES ACCOUNT ASSOCIATE, urgent care, hospital, or detention...) When possible be specific @ -No Did you speak to anyone other than the patient for history (EMS, parent, family, police, friend...)? What history was obtained from this source @ -No Did you review nursing and triage notes (agree or disagree)? Why? @ -I reviewed and agree with nursing and triage notes Were old charts reviewed (outside hosp., previous admission, EMS record, old EKG, old radiological studies, urgent care reports/EKG's, detention records)? Report findings @ -Old charts reviewed Differential Diagnosis (chest pain, altered mental status, abdominal pain women, abdominal pain men, vaginal bleeding, weakness, fever, dyspnea, syncope, headache, dizziness, GI bleed, back pain, seizure, CVA, palpatations, mental health, musculoskeletal)? @ -Differential Chest Pain: Stable Angina, Unstable Angina, STEMI, NSTEMI Aortic Dissection, Pneumothorax, Musculoskeletal, Esophageal Spasm GERD, Cholecystitis, Pancreatitis, Zoster, this is not meant to be an all-inclusive list. EKG interpreted by me (3pts min.). @ -As above X-rays interpreted by me (1pt min.). @ -Chest x-ray reveals no obvious acute cardio pulmonary process. CT interpreted by me (1pt min.). @ -None done U/S interpreted by me (1pt. min.). @ -None done What testing was considered but not performed or refused? (CT, X-rays, U/S, labs)? Why? @ -None What meds were considered but not given or refused? Why? @ -None Did you discuss the management of the patient with other professionals (professionals i.e. , PA, SALES ACCOUNT ASSOCIATE, lab, RT, psych nurse, dialysis social worker, care director, teacher, third officer, shelter case manager)? Give summary @ -I spoke with [facility] who accepted the admission. Was smoking cessation discussed for >3mins.? @ -No Was critical care preformed (if so, how long)? @ -No Were there social determinants of health that impacted care today? How? (Homele ssness, low income, unemployed, alcoholism, drug addiction, transportation, low edu. Level, literacy, decrease access to med. care, [facility], rehab)? @ -No Was there de-escalation of care discussed even if they declined (Discuss DNR or withdrawal of care, Hospice)? DNR status @ -No What co-morbidities impacted this encounter? (DM, HTN, Smoking, COPD, CAD, Cancer, CVA, ARF, Chemo, Hep., AIDS, mental health diagnosis, sleep apnea, morbid obesity)? @ -None Was patient admitted / discharged? Hospital course, mention meds given and route, prescriptions, significant lab abnormalities, going to OR and other pertinent info. @ -Based on the patient's presentation and physical exam, I'm concerned for possible cardiopulmonary etiology for the patient's current symptoms. We will obtain cardiac workup. This includes lipase as well as she does have a history of pancreatitis. Patient be given 324 mg of aspirin. She is currently asymptomatic. We will continue to monitor symptoms. EKG shows no signs of acute ischemia. Chest x-ray reveals no obvious acute cardio pulmonary process. Patient's laboratory studies are remarkable for an undetectable troponin. D-dimer is within acceptable limits. Mild hypomagnesemia. Patient's lipase is slightly elevated however this is somewhat chronic for the patient. Currently at 365. I discussed results with the patient. She is feeling improved at this time. However, patient's heart score is moderate at 4. Recommended observation admission.We did discuss elevated lipase, and patient states she does have a history of pancreatitis however she is adamant that the chest pain she expenses earlier was different from the pain she has had pancreatitis in the past. Her pancreatitis pain has always been in the abdomen. She is having chest pain with some radiation towards her neck. Therefore she was in agreement with admission for cardiology evaluation. Echo ordered. We will trend the troponin. Patient was in agreement with admission. [facility]. Undiagnosed new problem with uncertain prognosis? @ -No Drug Therapy requiring intensive monitoring for toxicity (Heparin, Nitro, Insulin, Cardizem)? @ -No Were any procedures done? @ -No Diagnosis/symptom? @ -Chest pain, hypomagnesemia Acute, or Chronic, or Acute on Chronic? @ -Acute Uncomplicated (without systemic symptoms) or Complicated (systemic symptoms)? @ -Complicated Side effects of treatment? @ -none Exacerbation, Progression, or Severe Exacerbation] @ -no Poses a threat to life or bodily function? @ -Possibly, yes - Lab Data Result diagrams: 02/09/23 00:17 02/09/23 00:17 Lab Results 02/09/23 02/09/23 02/09/23 Range/Units 00:17 00:17 00:17 WBC 8.1 (3.8-10.6) k/uL RBC 4.13 (3.80-5.40) m/uL Hgb 14.5 (11.4-16.0) gm/dL Hct 42.1 (34.0-46.0) % MCV 102.0 H D (80.0-100.0) fL MCH 35.1 H (25.0-35.0) pg MCHC 34.4 (31.0-37.0) g/dL RDW 12.5 (11.5-15.5) % Plt Count 130 L D (150-450) k/uL MPV 8.1 Neutrophils % 75 % Lymphocytes % 14 % Monocytes % 8 % Eosinophils % 1 % Basophils % 0 % Neutrophils # 6.1 (1.3-7.7) k/uL Lymphocytes # 1.1 (1.0-4.8) k/uL Monocytes # 0.6 (0-1.0) k/uL Eosinophils # 0.1 (0-0.7) k/uL Basophils # 0.0 (0-0.2) k/uL PT 11.7 (10.0-12.5) sec INR 1.1 (<1.2) APTT 25.5 (22.0-30.0) sec D-Dimer (<0.60) mg/L FEU Sodium 134 L (137-145) mmol/L Potassium 3.5 (3.5-5.1) mmol/L Chloride 98 (98-107) mmol/L Carbon Dioxide 27 (22-30) mmol/L Anion Gap 9 mmol/L BUN 15 (7-17) mg/dL Creatinine 0.44 L (0.52-1.04) mg/dL Est GFR (CKD-EPI)AfAm >90 (>60 ml/min/1.73 sqM) Est GFR (CKD-EPI)NonAf >90 (>60 ml/min/1.73 sqM) Glucose 208 H (74-99) mg/dL Calcium 8.8 (8.4-10.2) mg/dL Magnesium 1.5 L (1.6-2.3) mg/dL Total Bilirubin 0.8 (0.2-1.3) mg/dL AST 32 (14-36) U/L ALT 28 (4-34) U/L Alkaline Phosphatase 88 (38-126) U/L Troponin I (0.000-0.034) ng/mL Total Protein 7.1 (6.3-8.2) g/dL Albumin 3.4 L (3.5-5.0) g/dL Lipase (23-300) U/L 02/09/23 02/09/23 02/09/23 Range/Units 00:17 00:30 00:30 WBC (3.8-10.6) k/uL RBC (3.80-5.40) m/uL Hgb (11.4-16.0) gm/dL Hct (34.0-46.0) % MCV (80.0-100.0) fL MCH (25.0-35.0) pg MCHC (31.0-37.0) g/dL RDW (11.5-15.5) % Plt Count (150-450) k/uL MPV Neutrophils % % Lymphocytes % % Monocytes % % Eosinophils % % Basophils % % Neutrophils # (1.3-7.7) k/uL Lymphocytes # (1.0-4.8) k/uL Monocytes # (0-1.0) k/uL Eosinophils # (0-0.7) k/uL Basophils # (0-0.2) k/uL PT (10.0-12.5) sec INR (<1.2) APTT (22.0-30.0) sec D-Dimer 0.44 (<0.60) mg/L FEU Sodium (137-145) mmol/L Potassium (3.5-5.1) mmol/L Chloride (98-107) mmol/L Carbon Dioxide (22-30) mmol/L Anion Gap mmol/L BUN (7-17) mg/dL Creatinine (0.52-1.04) mg/dL Est GFR (CKD-EPI)AfAm (>60 ml/min/1.73 sqM) Est GFR (CKD-EPI)NonAf (>60 ml/min/1.73 sqM) Glucose (74-99) mg/dL Calcium (8.4-10.2) mg/dL Magnesium (1.6-2.3) mg/dL Total Bilirubin (0.2-1.3) mg/dL AST (14-36) U/L ALT (4-34) U/L Alkaline Phosphatase (38-126) U/L Troponin I <0.012 (0.000-0.034) ng/mL Total Protein (6.3-8.2) g/dL Albumin (3.5-5.0) g/dL Lipase 365 H (23-300) U/L - EKG Data -: EKG Interpreted by Me EKG Comments: 12-lead Electrocardiogram Interpretation Note EKG was reviewed and interpreted by myself. 12-lead ECG performed at 0015 is interpreted by me as revealing normal sinus rhythm at a rate of 90 beats per minute. [place] is normal. [place] interval is 148 ms, QRS duration is 102 ms, QTc is 412 ms.. There were no ST or T wave abnormalities to suggest myocardial ischemia or injury. R wave progression across the precordium was satisfactory. By my interpretation this EKG is non-diagnostic for acute ischemia. Disposition Clinical Impression: Hypomagnesemia, Chest pain Disposition: ADMITTED IP TO THIS [facility] Condition: Stable Referrals: Prashant Ha DO [Primary Care Provider] - 1-2 days Time of Disposition: 02:01
[2023-02-09] MEDS ORDERED: IPRATROPIUM-ALBUTEROL 3 ML NEB INHALATION STA (02:11)
[2023-02-09] MEDS ORDERED: MAGNESIUM SULFATE-D5W PMX 1 GM in DEXTROSE/WATER 1 100ML.BAG IVPB ONE (02:12)
[2023-02-09] MEDS ORDERED: ONDANSETRON 4 MG/2 ML VIAL IVP PRN (02:13)
[2023-02-09] MEDS ORDERED: NALOXONE 0.4 MG/ML 1 ML VIAL IV PRN (02:13)
[2023-02-09] MEDS ORDERED: HEPARIN SODIUM,PORCINE 5,000 UNIT/ML 1 ML VIAL SQ SCH (08:00)
--- NOTE | 2023-02-09 08:42 | P.CRDCN ---
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 She has a past medical history of diabetes mellitus type 2, hypertension, gastroesophageal reflux disease, gout, active tobacco use, history of recent pancreatitis. We have been asked to evaluate the patient for chest pain. Patient states that she had 8 bouts of pancreatitis related to alcohol use on 12/18. She states that prior to that she was exercising regularly and lost 40 pounds but has not worked out since that episode of pancreatitis. She states she has not had any alcohol for the past 3 weeks. She is still smoking 4 cigarettes per day. Yesterday around 6:30 in the evening she was at rest and she developed chest pain it was in the midsternal area and went to her back and then up to her neck and chin. She also had some difficulty in michelle athing. Pain was worse with deep breaths and she describes it as a telephone on her chest. Patient is status post magnesium replacement. Patient is seen today in the emergency center waiting for a bed on the observation unit. EKG sinus rhythm with no acute ST changes Chest x-ray: No acute findings Hemoglobin 14.5. Platelet count 130. D-dimer 0.44. Sodium 134, potassium 3.5, creatinine 0.44. Troponin negative 2. ProBNP 112. Lipase 365. Magnesium 1.5. Home cardiac medications: Lopressor 50 mg daily Review Of Systems: At the time of my evaluation: Constitutional: No fever, no chills. No weakness, fatigue or lethargy. EENT: No headache. No dizziness. Lungs: No shortness of breath, cough, no sputum production. No wheezing. Cardiovascular: + chest pain, no lower extremity edema. No palpitations. No paroxysmal nocturnal dyspnea. No orthopnea. No lightheadedness or dizziness. No syncopal episodes. Abdominal: No abdominal pain. No nausea, vomiting. No diarrhea. No cons tipation. No bloody or tarry stools. Genitourinary: No dysuria.. No urinary retention. Musculoskeletal: No myalgias. No muscle weakness, no frequent falls. No back pain. No neck pain. Integumentary: No wounds. No rash. No unusual bruising. Neurologic: No aphasia. No facial droop. No change in mentation. No head injury. No headache. Physical examination: Gen: This is a 52-year-old female. She is resting on ER stretcher and appears comfortable and in no acute distress. VS: reviewed HEENT: Head is atraumatic, normocephalic. Pupils equal, round. Sclerae is anicteric. NECK: Supple. No JVD. . LUNGS: Clear to auscultation. No wheezes or rhonchi. No intercostal retractions. HEART: Regular rate and rhythm. No murmur. ABDOMEN: Soft No tenderness. EXTREMITIES: No pedal edema. No calf tenderness. NEUROLOGICAL: Patient is awake, alert and oriented x3. Assessment: Atypical chest pain Diabetes mellitus type 2 Hypertension Active tobacco use and dependence History of recent pancreatitis secondary to alcohol use Recent intended weight loss Plan: Continue patient's Lopressor Obtain exercise stress echocardiogram today Obtain 2-D echocardiogram and Doppler study to assess cardiac structure and function If testing is unremarkable, patient is cleared for discharge by follow-up in the office in 2-3 weeks. Thank you kindly for this consultation. Nurse practitioner note has been reviewed, I agree with documented findings and plan of care. Patient was seen and examined. Past Medical History Past Medical History: Diabetes Mellitus, GERD/Reflux, Hypertension, Osteoarthritis (OA) Additional Past Medical History / Comment(s): gout History of Any Multi-Drug Resistant Organisms: None Reported Past Surgical History: Cholecystectomy, Tubal Ligation Additional Past Surgical History / Comment(s): carpel tunnel, d & c, polyps re moved Past Anesthesia/Blood Transfusion Reactions: No Reported Reaction Past Psychological History: Bipolar Smoking Status: Current every day smoker Past Alcohol Use History: Daily Past Drug Use History: None Reported - Past Family History Father Family Medical History: No Reported History, Unable to Obtain Mother Family Medical History: Hypertension Additional Family Medical History / Comment(s): HTN and bipolar; 2 uncles from suicide with bipolar. Medications and Allergies Home Medications Medication Instructions Recorded Confirmed Type Acyclovir [Zovirax] 800 mg PO TID PRN 06/05/15 02/09/23 History Omeprazole 20 mg PO DAILY 06/05/15 02/09/23 History allopurinoL [Zyloprim] 300 mg PO DAILY 06/05/15 02/09/23 History Metoprolol Tartrate [Lopressor] 50 mg PO DAILY 06/29/17 02/09/23 History Cinnamon Bark [Cinnamon] 500 mg PO DAILY 12/19/22 02/09/23 History sitaGLIPtin [Januvia] 100 mg PO DAILY 12/19/22 02/09/23 History Thiamine [Vitamin B-1] 100 mg PO DAILY #30 tab 12/20/22 02/09/23 Rx Acamprosate Calcium [Campral] 666 mg PO TID 02/09/23 02/09/23 History Ascorbic Acid [Vitamin C] 1,000 mg PO DAILY 02/09/23 02/09/23 History Cetirizine HCl [Zyrtec] 10 mg PO DAILY 02/09/23 02/09/23 History Dapagliflozin Propanediol [Farxiga] 5 mg PO DAILY 02/09/23 02/09/23 History Econazole 1% Cream [Spectazole] 1 applic TOPICAL DAILY 02/09/23 02/09/23 History Folic Acid 1 mg PO DAILY 02/09/23 02/09/23 History L.acidoph,Paracasei, B.lactis 1 cap PO DAILY 02/09/23 02/09/23 History [Probiotic] Magnesium Citrate 500 mg PO DAILY 02/09/23 02/09/23 History Milk Thistle 240 mg PO DAILY 02/09/23 02/09/23 History Nicotine 21Mg/24Hr Patch [Habitrol] 1 patch TRANSDERM DAILY 02/09/23 02/09/23 History [place] 3-6-9 1 cap PO DAILY 02/09/23 02/09/23 History Turmeric Root Extract [Turmeric] 1,000 mg PO DAILY 02/09/23 02/09/23 History Vitamin C/Biotin [Hair, Skin and 1 tab PO DAILY 02/09/23 02/09/23 History Nails Chew] Zinc Gluconate [Zinc] 50 mg PO DAILY 02/09/23 02/09/23 History Allergies Allergy/AdvReac Type Severity Reaction Status Date / Time No Known Allergies Allergy Verified 02/09/23 07:29 Physical Exam Vitals: Vital Signs Temp Pulse Resp BP Pulse Ox 02/09/23 03:00 90 16 94/69 02/09/23 02:45 92 02/09/23 02:34 90 02/09/23 02:00 87 20 100/56 95 02/09/23 01:15 96 18 108/68 98 02/09/23 00:11 98.0 F 96 18 108/73 98 Intake and Output 02/08/23 02/09/23 02/09/23 22:59 06:59 14:59 Other: Weight 63.503 kg Results 02/09/23 00:17 02/09/23 00:17 Cardiac Enzymes 02/09/23 02/09/23 02/09/23 Range/Units 00:17 00:17 02:18 AST 32 (14-36) U/L Troponin I <0.012 <0.012 (0.000-0.034) ng/mL Coagulation 02/09/23 Range/Units 00:17 PT 11.7 (10.0-12.5) sec APTT 25.5 (22.0-30.0) sec CBC 02/09/23 Range/Units 00:17 WBC 8.1 (3.8-10.6) k/uL RBC 4.13 (3.80-5.40) m/uL Hgb 14.5 (11.4-16.0) gm/dL Hct 42.1 (34.0-46.0) % Plt Count 130 L D (150-450) k/uL Comprehensive Metabolic Panel 02/09/23 Range/Units 00:17 Sodium 134 L (137-145) mmol/L Potassium 3.5 (3.5-5.1) mmol/L Chloride 98 (98-107) mmol/L Carbon Dioxide 27 (22-30) mmol/L BUN 15 (7-17) mg/dL Creatinine 0.44 L (0.52-1.04) mg/dL Glucose 208 H (74-99) mg/dL Calcium 8.8 (8.4-10.2) mg/dL AST 32 (14-36) U/L ALT 28 (4-34) U/L Alkaline Phosphatase 88 (38-126) U/L Total Protein 7.1 (6.3-8.2) g/dL Albumin 3.4 L (3.5-5.0) g/dL Current Medications Generic Name Dose Route Start Last Admin Trade Name Freq PRN Reason Stop Dose Admin Heparin Sodium (Porcine) 5,000 unit 02/09/23 08:00 Heparin Sodium,Porcine 5,000 Unit/Ml 1 Ml Vial SQ Q8HR AIDE Naloxone HCl 0.2 mg 02/09/23 02:13 Naloxone 0.4 Mg/Ml 1 Ml Vial IV Q2M PRN Opioid Reversal Ondansetron HCl 4 mg 02/09/23 02:13 Ondansetron 4 Mg/2 Ml Vial IVP Q8HR PRN Nausea And Vomiting Intake and Output 02/08/23 02/09/23 02/09/23 22:59 06:59 14:59 Other: Weight 63.503 kg 02/09/23 00:17 02/09/23 00:17
[2023-02-09 08:51] VITALS: RESP 18
[2023-02-09] MEDS ORDERED: THIAMINE 100 MG TAB PO SCH (09:00)
[2023-02-09] MEDS ORDERED: LINAGLIPTIN 5 MG TABLET PO SCH (09:00)
[2023-02-09] MEDS ORDERED: ZINC SULFATE 220 MG CAP PO SCH (09:00)
[2023-02-09] MEDS ORDERED: allopurinoL 300 MG TAB PO SCH (09:00)
[2023-02-09] MEDS ORDERED: METOPROLOL TARTRATE 50 MG TAB PO SCH (09:00)
[2023-02-09] MEDS ORDERED: PANTOPRAZOLE 40 MG TABLET PO SCH (09:00)
[2023-02-09] MEDS ORDERED: NICOTINE 21MG/24HR PATCH TRANSDERM SCH (09:00)
[2023-02-09] MEDS ORDERED: ASCORBIC ACID 500 MG TAB PO SCH (09:00)
[2023-02-09] MEDS ORDERED: FOLIC ACID 1 MG TAB PO SCH (09:00)
[2023-02-09] MEDS ORDERED: LORATADINE 10 MG TAB PO SCH (09:00)
[2023-02-09] MEDS ORDERED: DAPAGLIFLOZIN PROPANEDIOL 5 MG TABLET PO SCH (09:00)
--- NOTE | 2023-02-09 12:38 | CA ---
Stress Echo Report Stacie Aj Age: 52 Gender: F : 1970 Exam Date: 02/09/2023 12:07 Exam Location: [facility] Ht (in): 62 Wt (lb): 140 Ordering Physician: Izzy Corona Referring Physician: [id number] Director Marketing: FRANCISCO JAVIER, Technologist Procedure CPT: Indication: CP ICD-9 Codes: Rhythm: Patient History: Chest pain shortness of breath and palpitations. Cardiac Medications: Medications in past 24 hours: Contrast: Stress Results Protocol: Ralph Total dose(mL): Exercise Duration (min:sec): Max ST Depression (mm): Angina Score: Fletcher Score: METS: 9.2 Resting HR: 83 Resting BP: 91 / 61 Peak HR: 153 Peak BP: 131 / 46 Max Predicted HR: 167 92 % Max Predicted HR Target HR: 142 Double Product: Stress Summary: BP Response: Reason for Termination: Patient request Cardiac Symptoms: No Symptoms ECG Analysis Resting ECG: Normal sinus rhythm normal lites normal intervals Stress ECG: Patient exercised on Ralph protocol for 9and half minutes achieving 85% of predicted maximal heart rate without chest pain or diagnostic ST segment depression Arrhythmia: Echo Analysis Resting Echo: Normal left ventricular size wall motion systolic function Peak Echo Analysis: Normal hyperdynamic response of all segments of myocardium noted MEASUREMENTS (Male/Female) Normal Values CONCLUSIONS good exercise tolerance Negative stress test by EKG criteria Negative stress echo Dr. Lyndon Ball MD (Electronically Signed) Final Date: 09 February 2023 12:37
[2023-02-09 13:03] VITALS: PULSE 91
--- NOTE | 2023-02-09 13:05 | P.HPIM ---
History of Present Illness Patient is a pleasant 52-year-old the female came in with complaints of retrosternal chest pain most likely burning sensation, admitted for the rule out unstable angina. Patient's troponins were negative EKG did not show any signifi cant abnormality d-dimer is within normal limits. Patient underwent stress test which was negative patient was cleared by cardiology to be discharged. Patient had history of alcoholism in the past she quit alcohol Weeks ago patient had multiple episodes of pancreatitis. Patient's magnesium is low at 1.4 which will be replaced patient also takes magnesium supplementation at home. Patient takes omeprazole 20 mg daily. Patient was asked to take 20 mg twice a day for about a week followed by switching it to Pepcid to prevent side effects like osteoporosis. REVIEW OF SYSTEMS: CONSTITUTIONAL: No fever, no malaise, no fatigue. HEENT: No recent visual problems or hearing problems. Denied any sore throat. CARDIOVASCULAR: No orthopnea, PND, no palpitations, no syncope. PULMONARY: No shortness of breath, no cough, no hemoptysis. GASTROINTESTINAL: No diarrhea. NEUROLOGICAL: No headaches, no weakness, no numbness. HEMATOLOGICAL: Denies any bleeding or petechiae. GENITOURINARY: Denies any burning micturition, frequency, or urgency. MUSCULOSKELETAL/RHEUMATOLOGICAL: Denies any joint pain, swelling, or any muscle pain. ENDOCRINE: Denies any polyuria or polydipsia. The rest of the 14-point review of systems is negative. PHYSICAL EXAMINATION: GENERAL: The patient is alert and oriented x3, not in any acute distress. Well developed, well nourished. HEENT: Pupils are round and equally reacting to light. EOMI. No scleral icterus. No conjunctival pallor. Normocephalic, atraumatic. No pharyngeal erythema. No thyromegaly. CARDIOVASCULAR: S1 and S2 present. No murmurs, rubs, or gallops. PULMONARY: Chest is clear to auscultation, no wheezing or crackles. ABDOMEN: Soft, nontender, nondistended, normoactive bowel sounds. No palpable organomegaly. MUSCULOSKELETAL: No joint swelling or deformity. EXTREMITIES: No cyanosis, clubbing, or pedal edema. NEUROLOGICAL: Gross neurological examination did not reveal any focal deficits. SKIN: No rashes. Assessment and plan -Retrosternal chest pain: Rule out a concurrent syndromes stresses is negative patient will be discharged today patient probably has gastroesophageal reflux disease. Management as mentioned above -Diabetes mellitus -Hypertension -Hypomagnesemia magnesium was replaced Patient will be discharged today Past Medical History Past Medical History: Diabetes Mellitus, GERD/Reflux, Hypertension, Osteoarthritis (OA) Additional Past Medical History / Comment(s): gout History of Any Multi-Drug Resistant Organisms: None Reported Past Surgical History: Cholecystectomy, Tubal Ligation Additional Past Surgical History / Comment(s): carpel tunnel, d & c, polyps removed Past Anesthesia/Blood Transfusion Reactions: No Reported Reaction Past Psychological History: Bipolar Smoking Status: Current every day smoker Past Alcohol Use History: Daily Past Drug Use History: None Reported - Past Family History Father Family Medical History: No Reported History, Unable to Obtain Mother Family Medical History: Hypertension Additional Family Medical History / Comment(s): HTN and bipolar; 2 uncles from suicide with bipolar. Medications and Allergies Home Medications Medication Instructions Recorded Confirmed Type Acyclovir [Zovirax] 800 mg PO TID PRN 06/05/15 02/09/23 History Omeprazole 20 mg PO DAILY 06/05/15 02/09/23 History allopurinoL [Zyloprim] 300 mg PO DAILY 06/05/15 02/09/23 History Metoprolol Tartrate [Lopressor] 50 mg PO DAILY 06/29/17 02/09/23 History Cinnamon Bark [Cinnamon] 500 mg PO DAILY 12/19/22 02/09/23 History sitaGLIPtin [Januvia] 100 mg PO DAILY 12/19/22 02/09/23 History Thiamine [Vitamin B-1] 100 mg PO DAILY #30 tab 12/20/22 02/09/23 Rx Acamprosate Calcium [Campral] 666 mg PO TID 02/09/23 02/09/23 History Ascorbic Acid [Vitamin C] 1,000 mg PO DAILY 02/09/23 02/09/23 History Cetirizine HCl [Zyrtec] 10 mg PO DAILY 02/09/23 02/09/23 History Dapagliflozin Propanediol [Farxiga] 5 mg PO DAILY 02/09/23 02/09/23 History Econazole 1% Cream [Spectazole] 1 applic TOPICAL DAILY 02/09/23 02/09/23 History Folic Acid 1 mg PO DAILY 02/09/23 02/09/23 History L.acidoph,Paracasei, B.lactis 1 cap PO DAILY 02/09/23 02/09/23 History [Probiotic] Magnesium Citrate 500 mg PO DAILY 02/09/23 02/09/23 History Milk Thistle 240 mg PO DAILY 02/09/23 02/09/23 History Nicotine 21Mg/24Hr Patch [Habitrol] 1 patch TRANSDERM DAILY 02/09/23 02/09/23 History [place] 3-6-9 1 cap PO DAILY 02/09/23 02/09/23 History Turmeric Root Extract [Turmeric] 1,000 mg PO DAILY 02/09/23 02/09/23 History Vitamin C/Biotin [Hair, Skin and 1 tab PO DAILY 02/09/23 02/09/23 History Nails Chew] Zinc Gluconate [Zinc] 50 mg PO DAILY 02/09/23 02/09/23 History Allergies Allergy/AdvReac Type Severity Reaction Status Date / Time No Known Allergies Allergy Verified 02/09/23 07:29 Physical Exam Vitals: Vital Signs Temp Pulse Resp BP Pulse Ox 02/09/23 12:48 91 18 103/70 98 02/09/23 08:15 98.1 F 90 18 110/74 96 02/09/23 03:00 90 16 94/69 02/09/23 02:45 92 02/09/23 02:34 90 02/09/23 02:00 87 20 100/56 95 02/09/23 01:15 96 18 108/68 98 02/09/23 00:11 98.0 F 96 18 108/73 98 Intake and Output 02/08/23 02/09/23 02/09/23 22:59 06:59 14:59 Other: Weight 63.503 kg Results CBC & Chem 7: 02/09/23 00:17 02/09/23 00:17 Labs: Abnormal Lab Results - Last 24 Hours (Table) 02/09/23 02/09/23 02/09/23 Range/Units 00:17 00:17 00:30 MCV 102.0 H D (80.0-100.0) fL MCH 35.1 H (25.0-35.0) pg Plt Count 130 L D (150-450) k/uL Sodium 134 L (137-145) mmol/L Creatinine 0.44 L (0.52-1.04) mg/dL Glucose 208 H (74-99) mg/dL Magnesium 1.5 L (1.6-2.3) mg/dL Albumin 3.4 L (3.5-5.0) g/dL Lipase 365 H (23-300) U/L
--- NOTE | 2023-02-09 13:05 | P.DS ---
Providers Date of admission: 02/09/23 02:20 Attending physician: Lay Jerome Consults: 02/09/23 02:13 Consult Physician Routine Consulting Provider: [facility] Consult Reason/Comments: atypical chest pain Do you want consulting provider notified?: Yes Primary care physician: Prash[facility] Course: Patient is a pleasant 52-year-old the female came in with complaints of retrosternal chest pain most likely burning sensation, admitted for the rule out unstable angina. Patient's troponins were negative EKG did not show any significant abnormality d-dimer is within normal limits. Patient underwent stress test which was negative patient was cleared by cardiology to be discharged. Patient had history of alcoholism in the past she quit alcohol Weeks ago patient had multiple episodes of pancreatitis. Patient's magnesium is low at 1.4 which will be replaced patient also takes magnesium supplementation at home. Patient takes omeprazole 20 mg daily. Patient was asked to take 20 mg twice a day for about a week followed by switching it to Pepcid to prevent side effects like osteoporosis. REVIEW OF SYSTEMS: CONSTITUTIONAL: No fever, no malaise, no fatigue. HEENT: No recent visual problems or hearing problems. Denied any sore throat. CARDIOVASCULAR: No orthopnea, PND, no palpitations, no syncope. PULMONARY: No shortness of breath, no cough, no hemoptysis. GASTROINTESTINAL: No diarrhea. NEUROLOGICAL: No headaches, no weakness, no numbness. HEMATOLOGICAL: Denies any bleeding or petechiae. GENITOURINARY: Denies any burning micturition, frequency, or urgency. MUSCULOSKELETAL/RHEUMATOLOGICAL: Denies any joint pain, swelling, or any muscle pain. ENDOCRINE: Denies any polyuria or polydipsia. The rest of the 14-point review of systems is negative. PHYSICAL EXAMINATION: GENERAL: The patient is alert and oriented x3, not in any acute distress. Well developed, well nourished. HEENT: Pupils are round and equally reacting to light. EOMI. No scleral icterus. No conjunctival pallor. Normocephalic, atraumatic. No pharyngeal erythema. No thyromegaly. CARDIOVASCULAR: S1 and S2 present. No murmurs, rubs, or gallops. PULMONARY: Chest is clear to auscultation, no wheezing or crackles. ABDOMEN: Soft, nontender, nondistended, normoactive bowel sounds. No palpable organomegaly. MUSCULOSKELETAL: No joint swelling or deformity. EXTREMITIES: No cyanosis, clubbing, or pedal edema. NEUROLOGICAL: Gross neurological examination did not reveal any focal deficits. SKIN: No rashes. Assessment and plan -Retrosternal chest pain: Rule out a concurrent syndromes stresses is negative patient will be discharged today patient probably has gastroesophageal reflux disease. Management as mentioned above -Diabetes mellitus -Hypertension -Hypomagnesemia magnesium was replaced Patient will be discharged today Patient Condition at Discharge: Stable Plan - Discharge Summary New Discharge Prescriptions: Continue Omeprazole 20 mg PO DAILY allopurinoL [Zyloprim] 300 mg PO DAILY Acyclovir [Zovirax] 800 mg PO TID PRN PRN Reason: antiviral Metoprolol Tartrate [Lopressor] 50 mg PO DAILY Thiamine [Vitamin B-1] 100 mg PO DAILY #30 tab Zinc Gluconate [Zinc] 50 mg PO DAILY Cetirizine HCl [Zyrtec] 10 mg PO DAILY [place] 3-6-9 1 cap PO DAILY Milk Thistle 240 mg PO DAILY Dapagliflozin Propanediol [Farxiga] 5 mg PO DAILY Folic Acid 1 mg PO DAILY sitaGLIPtin [Januvia] 100 mg PO DAILY Cinnamon Bark [Cinnamon] 500 mg PO DAILY Turmeric Root Extract [Turmeric] 1,000 mg PO DAILY L.acidoph,Paracasei, B.lactis [Probiotic] 1 cap PO DAILY Ascorbic Acid [Vitamin C] 1,000 mg PO DAILY Vitamin C/Biotin [Hair, Skin and Nails Chew] 1 tab PO DAILY Magnesium Citrate 500 mg PO DAILY Nicotine 21Mg/24Hr Patch [Habitrol] 1 patch TRANSDERM DAILY Econazole 1% Cream [Spectazole] 1 applic TOPICAL DAILY Acamprosate Calcium [Campral] 666 mg PO TID Discharge Medication List Acyclovir [Zovirax] 800 mg PO TID PRN 06/05/15 [History] Omeprazole 20 mg PO DAILY 06/05/15 [History] allopurinoL [Zyloprim] 300 mg PO DAILY 06/05/15 [History] Metoprolol Tartrate [Lopressor] 50 mg PO DAILY 06/29/17 [History] Cinnamon Bark [Cinnamon] 500 mg PO DAILY 12/19/22 [History] sitaGLIPtin [Januvia] 100 mg PO DAILY 12/19/22 [History] Thiamine [Vitamin B-1] 100 mg PO DAILY #30 tab 12/20/22 [Rx] Acamprosate Calcium [Campral] 666 mg PO TID 02/09/23 [History] Ascorbic Acid [Vitamin C] 1,000 mg PO DAILY 02/09/23 [History] Cetirizine HCl [Zyrtec] 10 mg PO DAILY 02/09/23 [History] Dapagliflozin Propanediol [Farxiga] 5 mg PO DAILY 02/09/23 [History] Econazole 1% Cream [Spectazole] 1 applic TOPICAL DAILY 02/09/23 [History] Folic Acid 1 mg PO DAILY 02/09/23 [History] L.acidoph,Paracasei, B.lactis [Probiotic] 1 cap PO DAILY 02/09/23 [History] Magnesium Citrate 500 mg PO DAILY 02/09/23 [History] Milk Thistle 240 mg PO DAILY 02/09/23 [History] Nicotine 21Mg/24Hr Patch [Habitrol] 1 patch TRANSDERM DAILY 02/09/23 [History] [place] 3-6-9 1 cap PO DAILY 02/09/23 [History] Turmeric Root Extract [Turmeric] 1,000 mg PO DAILY 02/09/23 [History] Vitamin C/Biotin [Hair, Skin and Nails Chew] 1 tab PO DAILY 02/09/23 [History] Zinc Gluconate [Zinc] 50 mg PO DAILY 02/09/23 [History] Follow up Appointment(s)/Referral(s): Prashant Ha DO [Primary Care Provider] - 3 Days Lyndon Ball MD [STAFF PHYSICIAN] - 3 Weeks Discharge Disposition: HOME SELF-CARE
[2023-02-09] MEDS: MAGNESIUM SULFATE-D5W PMX 1 GM in DEXTROSE/WATER 1 100ML.BAG IVPB SCH ×2 (13:09→14:20)
[2023-02-09 14:35] VITALS: BP 99/66; TEMP 98.3
--- NOTE | 2023-02-10 09:20 | CA ---
Transthoracic Echo Report Name: Stacie Aj Age: 52 Gender: F : 1970 Exam Date: 02/09/2023 11:20 Exam Location: [facility] Ht (in): 62 Wt (lb): 140 Ordering Physician: Rusty Casarez MD Attending/Referring Phys: Zoo Keeper Re Pan [facility] Procedure CPT: Indications: atypical chest pain Cardiac Hx: Technical Quality: Fair Contrast 1: Total Dose (mL): Contrast 2: Total Dose (mL): MEASUREMENTS (Male / Female) Normal Values 2D ECHO LV Diastolic Diameter PLAX 4.6 cm 4.2 - 5.9 / 3.9 - 5.3 cm LV Systolic Diameter PLAX 3.3 cm IVS Diastolic Thickness 0.7 cm 0.6 - 1.0 / 0.6 - 0.9 cm LVPW Diastolic Thickness 0.8 cm 0.6 - 1.0 / 0.6 - 0.9 cm LV Relative Wall Thickness 0.3 LVOT Diameter 2.0 cm LA Volume 40.7 cm??? 18 - 58 / 22 - 52 cm??? LA Volume Index 24.2 cm???/m??? 16 - 28 cm???/m??? Ascending Aorta Diameter 3.0 cm M-MODE Aortic Root Diameter MM 2.4 cm LA Systolic Diameter MM 3.8 cm LA Ao Ratio MM 1.6 AV Cusp Separation MM 1.8 cm DOPPLER AV Peak Velocity 125.9 cm/s AV Peak Gradient 6.3 mmHg AV Mean Velocity 99.4 cm/s AV Mean Gradient 4.2 mmHg AV Velocity Time Integral 23.9 cm LVOT Peak Velocity 95.8 cm/s LVOT Peak Gradient 3.7 mmHg LVOT Velocity Time Integral 20.4 cm LVOT Stroke Volume 64.6 cm??? LVOT Stroke Volume Index 39.3 ml/m??? LVOT Cardiac Index 3073.0 cm???/min???m??? AV Area Cont Eq vti 2.7 cm??? AV Area Cont Eq pk 2.4 cm??? MV Area PHT 4.2 cm??? Mitral E Point Velocity 72.0 cm/s Mitral A Point Velocity 47.7 cm/s Mitral E to A Ratio 1.5 MV Deceleration Time 182.0 ms LV E' Lateral Velocity 15.1 cm/s Mitral E to LV E' Lateral Ratio 4.8 LV E' Septal Velocity 9.5 cm/s Mitral E to LV E' Septal Ratio 7.6 TR Peak Velocity 208.8 cm/s TR Peak Gradient 17.4 mmHg Right Atrial Pressure 3.0 mmHg Pulmonary Artery Systolic Pressu 20.4 mmHg Right Ventricular Systolic Press 20.4 mmHg FINDINGS Left Ventricle Left ventricular wall thickness normal. Left ventricular cavity size normal. Normal left ventricular systolic function with no obvious regional wall motion abnormalities. Left ventricular ejection fraction is estimated at 55-60%. Right Ventricle Mild right ventricular dilatation. Right Atrium Normal right atrial size. Left Atrium Normal left atrial size. Mitral Valve Mitral valve thickened. No mitral regurgitation. Aortic Valve Trileaflet aortic valve. No aortic valve stenosis or regurgitation. Tricuspid Valve Structurally normal tricuspid valve. Trace tricuspid regurgitation. Pulmonic Valve Pulmonic valve not well visualized. Trace pulmonic regurgitation. Pericardium Minimal pericardial effusion (normal variant). Aorta Normal size aortic root and proximal ascending aorta. CONCLUSIONS Normal LV function Previewed by: Dr. Lyndon Ball MD (Electronically Signed) Final Date: 10 February 2023 09:19
== END 2023-02-09 15:16 | disposition home or self-care (01) ==
LOC: EC 23:49 → 6NMEDSUR 02-09 02:20
PROVIDERS: ADMIT Hospitalist; ATTEND Hospitalist
DX: R07.89 Other chest pain (principal); E83.42 Hypomagnesemia; F10.21 Alcohol dependence, in remission; E11.9 Type 2 diabetes mellitus without complications; I10 Essential (primary) hypertension; K21.9 Gastro-esophageal reflux disease without esophagitis; F17.210 Nicotine dependence, cigarettes, uncomplicated; Z87.19 Personal history of other diseases of the digestive system; Z79.84 Long term (current) use of oral hypoglycemic drugs; Z79.899 Other long term (current) drug therapy
CPT/HCPCS: 96365; 96366; 96372; 99285; 36415; 93005; 93306; 93351; 85379; 83880; 80053; 83690; 83735; 84484; 85025; 85610; 85730; 71046; G0378; S4990; J1644; J3475

== ENCOUNTER → 2023-03-10 | Day surgery (SDC) | payer OTHER ==
[~2023-03-10] MED LIST changes: -ACETAMINOPHEN IV (For NPO) 1,000 MG in EMPTY BAG 1 BAG IVPB ONE; -ACETAMINOPHEN IV (For NPO) 100 ML IVPB ONE; -DEXAMETHASONE SOD PHOSPHATE 10 MG/ML 1 ML VIAL IV ONE; +LIDOCAINE 1% INJ 10MG/ML (20 ML MDV) ONE; -MIDAZOLAM 2 MG/2 ML VIAL IV PRN; -MORPHINE SULFATE 2 MG/ML SYRINGE IV PRN; -ONDANSETRON ODT 4 MG TAB PO ONE; +PROPOFOL 10 MG/ML 20 ML VIAL IV ONE; -Pre Op ABX Message 1 EACH MISC MISCELLANE ONE; -SCOPOLAMINE 1.5MG/72HR PATCH TRANSDERM ONE; -ceFAZolin IN SWFI 2 GM/20 ML SYRINGE IVP ONE; -fentaNYL (PF) 50 MCG/ML 2 ML AMP IV PRN
[2023-03-10 07:29] LABS: Glucose,Whole Blood 161 mg/dL (70-110)
[2023-03-10 07:48] VITALS: TEMP 97.2
--- NOTE | 2023-03-10 08:28 | P.PCN ---
Date of Procedure: 03/10/23 Procedure(s) Performed: Brief history: Patient is a pleasant 51-year-old white female scheduled for an elective upper endoscopy as well as colonoscopy as a part of evaluation of liver cirrhosis/screening for esophageal varices/ and screening for colon cancer Procedure performed: Esophagogastroduodenoscopy biopsy Colonoscopy Preoperative diagnosis: History of liver cirrhosis/screening for esophageal varices Screening for colon cancer Anesthesia: MAC Procedure: After informed consent was obtained from the patient was brought into the endoscopy unit and IV sedation was administered by anesthesia under continuous monitoring. Initially upper endoscopy was done. The Olympus GF 160 video endoscope was inserted inserted into the mouth and esophagus intubated without any difficulty and was gradually advanced into the stomach and duodenum and carefully examined. The bulb and second part of the duodenum appeared normal. The scope was then withdrawn into the stomach adequately insufflated with air and upon careful examination the antrum had mild gastritis and biopsies were done from this area. Mucosa of the body, cardia and fundus appeared normal. The gastric varices identified. The scope was then withdrawn into the esophagus. The GE junction was located at 40 cm to the incisors. It appeared regular with no erythema erosions or ulcerations. Small distal esophageal varices seen. Rest of the esophagus appeared normal. Patient tolerated the procedure well. At this time the patient continued to remain sedation. Initial digital rectal examination was normal. Olympus CF 160 video colonoscope was then inserted into the rectum and gradually advanced to the cecum without any difficulty. Careful examination was performed as the scope was gradually being withdrawn. The prep was fair.. The cecum, ascending colon, transverse colon, descending colon, sigmoid colon and rectum appeared normal. Retroflexion was performed in the rectum and no lesions were noted. Patient tolerated the procedure well. Impression: 1. Upper endoscopy revealed small esophageal varices but no evidence of gastric varices and mild antral gastritis 2. Colonoscopy was within normal limits with no evidence of colorectal neoplasia Recommendations: Findings of this examination were discussed with the patient as well as her family. She was advised to follow with the biopsy results. Recommend repeat upper endoscopy in 3 years to monitor esophageal varices. Recommend repeat screening colonoscopy in 10 years.
[2023-03-10 09:31] VITALS: BP 112/76; PULSE 80; RESP 18
== END ==
LOC: ORWHC2ENDO 06:46
PROVIDERS: ATTEND Internal Medicine Gastroenterology
DX: K29.50 Unspecified chronic gastritis without bleeding (principal); I85.10 Secondary esophageal varices without bleeding; K70.30 Alcoholic cirrhosis of liver without ascites; I10 Essential (primary) hypertension; F17.200 Nicotine dependence, unspecified, uncomplicated; E11.9 Type 2 diabetes mellitus without complications; K21.9 Gastro-esophageal reflux disease without esophagitis; Z79.899 Other long term (current) drug therapy; Z98.890 Other specified postprocedural states
CPT/HCPCS: 81025; 88305; 84703; 45378; 43239; J2001; J2704

== ENCOUNTER → 2023-04-17 | Outpatient (CLI) | payer OTHER ==
--- NOTE | 2023-04-17 14:34 | MM ---
Reason for Exam: Screening (asymptomatic). Last screening mammogram was performed 12 month(s) ago. Patient History: Menarche at age 15. First Full-Term at age 21. Postmenopausal. Patient has history of breast feeding. Hormonal Contraceptives, from age 17 until age 22. Risk Values: Concetta 5 year model risk: 0.9%. NCI Lifetime model risk: 7.0%. Prior Study Comparison: 07/17/2020 Left Diagnostic Mammogram, [facility]. 03/19/2021 Bilateral Screening Mammogram, [facility]. 04/15/2022 Bilateral MG 3D screening mammo w/cad, [facility]. Tissue Density: There are scattered fibroglandular densities. Findings: Analyzed By CAD. There is no suspicious group of microcalcifications or new suspicious mass. Overall Assessment: Negative, BI-RAD 1 Management: Screening Mammogram of both breasts in [address] [facility] will attempt to contact patient to return for supplemental views and ultrasound if indicated. Patient should continue monthly self-breast exams. A clinical breast exam by your physician is recommended on an annual basis. This exam should not preclude additional follow-up of suspicious palpable abnormalities. Note on Concetta scores and lifetime risk: 1. A Concetta score greater than 3% is considered moderate risk. If this is the case, consider specialist referral to assess eligibility for a risk reducing agent. 2. If overall lifetime risk for the development of breast cancer is 20% or higher, the patient may qualify for future screening with alternating mammogram and breast MRI. Electronically signed and approved by: Ravin Terrell DO
== END | disposition home or self-care (01) ==
LOC: RADMAMWWP 10:27
PROVIDERS: ATTEND Family Medicine
DX: Z12.31 Encounter for screening mammogram for malignant neoplasm of breast (principal); Z78.0 Asymptomatic menopausal state
CPT/HCPCS: 77063; 77067

== ENCOUNTER → 2023-06-15 | Outpatient (CLI) | payer OTHER ==
--- NOTE | 2023-06-15 16:09 | XR ---
EXAMINATION TYPE: XR bone survey complete DATE OF EXAM: 06/15/2023 3:44 PM CLINICAL INDICATION:Female, 52 years old with history of D47.2 MONOCLONAL GAMMOPATHY; [facility] COMPARISON: None TECHNIQUE: Several radiographics images of the axial and appendicular spine were obtained in multipl e projections. FINDINGS: Skull: No lytic or sclerotic lesions are identified. Spine: No lytic or sclerotic lesions are identified. The pedicles are intact. There are no fractures, dislocations or subluxations. Chest: No lytic or sclerotic lesions are identified. The ribs have a normal appearance. Abdomen/Pelvis: No lytic or sclerotic lesions are identified. Extremities: No lytic or sclerotic lesions are identified. IMPRESSION: No suspicious lesions.
[2023-06-15 21:34] LABS: Basophils # (A) 0.03 X 10*3/uL (0.00-0.10); Basophils % (A) 0.5 %; Eosinophils # (A) 0.17 X 10*3/uL (0.04-0.35); Eosinophils % (A) 2.8 %; HCT 45.5 % (37.2-46.3); HGB 16.2 g/dL (12.0-15.0); Lymphocytes # (A) 2.29 X 10*3/uL (0.90-5.00); Lymphocytes % (A) 37.9 %; MCH 33.7 pg (27.0-32.0); MCHC 35.6 g/dL (32.0-37.0); MCV 94.6 FL (80.0-97.0); Mean Platelet Volume 10.7 FL (9.5-12.2); Monocytes # (A) 0.79 X 10*3/uL (0.20-1.00); Monocytes % (A) 13.1 %; NRBC Per 100 WBC 0 X 10*3/uL (0.00-0.01); Neutrophils # (A) 2.75 X 10*3/uL (1.80-7.70); Neutrophils % (A) 45.5 %; Platelet Count 112 X 10*3/uL (140-440); RBC 4.81 X 10*6/uL (4.10-5.20); RDW 13.1 % (11.5-14.5); WBC 6.04 X 10*3/uL (4.50-10.00)
[2023-06-15 21:36] LABS: Beta 2 Microglobulin 1.9 mg/L (0.61-2.37)
[2023-06-15 21:58] LABS: Erythrocyte Sedimentation Rate 11 mm/Hr (0-30)
[2023-06-15 22:38] LABS: BUN/Creat Ratio 19.29 Ratio (12.00-20.00); Blood Urea Nitrogen 13.5 mg/dL (9.0-27.0); Calcium 9.8 mg/dL (8.7-10.3); Carbon Dioxide 31.4 mmol/L (21.6-31.8); Chloride 97 mmol/L (96-109); Glucose 96 mg/dL (70-110); Potassium 3.1 mmol/L (3.5-5.5); Sodium 140 mmol/L (135-145)
[2023-06-16 16:20] LABS: Free Kappa Lt Chain Qnt, Serum 31.39 mg/dL (0.33-1.94); Free Lambda Lt Chain Qnt, Seru 1.88 mg/dL (0.57-2.63)
== END | disposition home or self-care (01) ==
LOC: RADUSMAIN 14:55
PROVIDERS: ATTEND Internal Medicine Hematology & Oncology
DX: D47.2 Monoclonal gammopathy (principal); E11.9 Type 2 diabetes mellitus without complications; M10.9 Gout, unspecified; I10 Essential (primary) hypertension
CPT/HCPCS: 77075; 80048; 82232; 83883; 84165; 85025; 85652

== ENCOUNTER → 2023-06-30 | Outpatient (CLI) | payer OTHER ==
[2023-06-30 16:42] LABS: Protein, Total 7.3 g/dL (6.2-8.2)
[2023-07-03 16:54] LABS: Albumin 3.94 g/dL (3.80-4.90); Gamma Globulin 1.66 g/dL (0.70-1.50)
== END | disposition home or self-care (01) ==
LOC: LABWHC1 09:03
PROVIDERS: ATTEND Internal Medicine Hematology & Oncology
DX: I10 Essential (primary) hypertension (principal); E11.9 Type 2 diabetes mellitus without complications; D47.2 Monoclonal gammopathy; M10.9 Gout, unspecified
CPT/HCPCS: 36415; 84165

== ENCOUNTER → 2023-08-22 | Outpatient (CLI) | payer OTHER ==
[2023-08-22 15:01] LABS: ALT 30 U/L (8-44); AST 29 U/L (13-35); Albumin 4.3 g/dL (3.8-4.9); Alkaline Phosphatase 126 U/L (41-126); BUN/Creat Ratio 24.57 Ratio (12.00-20.00); Blood Urea Nitrogen 17.2 mg/dL (9.0-27.0); Calcium 9.7 mg/dL (8.7-10.3); Carbon Dioxide 27.7 mmol/L (21.6-31.8); Chloride 100 mmol/L (96-109); Globulin 3.3 g/dL (1.6-3.3); Glucose 140 mg/dL (70-110); Potassium 3.7 mmol/L (3.5-5.5); Sodium 139 mmol/L (135-145); Total Bilirubin 0.7 mg/dL (0.3-1.2); Total Protein 7.6 g/dL (6.2-8.2)
[2023-08-22 15:02] LABS: Basophils # (A) 0.03 X 10*3/uL (0.00-0.10); Basophils % (A) 0.5 %; Eosinophils # (A) 0.17 X 10*3/uL (0.04-0.35); Eosinophils % (A) 2.7 %; HCT 47.8 % (37.2-46.3); HGB 16.5 g/dL (12.0-15.0); Lymphocytes # (A) 1.91 X 10*3/uL (0.90-5.00); Lymphocytes % (A) 30.6 %; MCH 33.7 pg (27.0-32.0); MCHC 34.5 g/dL (32.0-37.0); MCV 97.8 FL (80.0-97.0); Mean Platelet Volume 11.2 FL (9.5-12.2); Monocytes # (A) 0.63 X 10*3/uL (0.20-1.00); Monocytes % (A) 10.1 %; NRBC Per 100 WBC 0 X 10*3/uL (0.00-0.01); Neutrophils # (A) 3.49 X 10*3/uL (1.80-7.70); Neutrophils % (A) 55.9 %; Platelet Count 105 X 10*3/uL (140-440); RBC 4.89 X 10*6/uL (4.10-5.20); RDW 13.3 % (11.5-14.5); WBC 6.24 X 10*3/uL (4.50-10.00)
== END | disposition home or self-care (01) ==
LOC: LABWHC1 07:46
PROVIDERS: ATTEND Internal Medicine Gastroenterology
DX: K70.30 Alcoholic cirrhosis of liver without ascites (principal)
CPT/HCPCS: 36415; 80053; 82105; 85025

== ENCOUNTER → 2023-08-22 | Outpatient (CLI) | payer OTHER ==
--- NOTE | 2023-08-22 11:00 | US ---
EXAMINATION TYPE: US liver DATE OF EXAM: 08/22/2023 COMPARISON: CT abdomen 01/20/2023, abdominal ultrasound 12/19/2022 CLINICAL INDICATION: Female, 52 years old with history of K70.30 ALCOHOLIC CIRRHOSIS OF LIVER WO ASCI YUE; Cirrhosis gallbladder removed. TECHNIQUE: Multiple sonographic images of the right upper quadrant are obtained. FINDINGS: EXAM MEASUREMENTS: Liver Length: 15.7 cm Gallbladder Wall: Surgically absent CBD: .8 cm Right Kidney: 11.1 x 4.2 x 4.2 cm PARKING ENFORCEMENT TECHNICIAN NOTES: Pancreas: Tail obscured by overlying bowel gas Liver: Increased attenuation Gallbladder: Surgically absent CBD: wnl Right Kidney: No hydronephrosis or masses seen Gallbladder is surgically absent. Common bile duct is within normal limits for postcholecystectomy. T he visualized portion of the pancreas is within normal limits. The tail is obscured by overlying ty l gas. Heterogenous increased echogenicity of the liver. This appearance limits evaluation for small intrahepatic masses. No gross evidence of mass. No marginal nodularity identified. No intrahepatic bi liary duct dilatation. Right kidney is unremarkable without evidence of hydronephrosis, nephrolithias is, or solid mass. IMPRESSION: 1. Heterogenous increased echogenic appearance of the liver consistent with hepatocellular disease. This is most, if seen with fatty infiltration. No overt cirrhotic appearance at this time. 2. Postcholecystectomy changes.
== END | disposition home or self-care (01) ==
LOC: RADUSWWP 07:04
PROVIDERS: ATTEND Internal Medicine Gastroenterology
DX: K76.89 Other specified diseases of liver (principal); K70.30 Alcoholic cirrhosis of liver without ascites; Z90.49 Acquired absence of other specified parts of digestive tract
CPT/HCPCS: 76705

== ENCOUNTER → 2023-12-22 | Outpatient (CLI) | payer OTHER ==
--- NOTE | 2023-12-22 17:06 | XR ---
EXAMINATION TYPE: XR foot complete 3 views each side, bilateral DATE OF EXAM: 12/22/2023 Comparison: None Clinical History: 53-year-old female M79.671 M79.672 Pain bilat feet Findings: Right: Previous bunionectomy surgery with cortical screw fixation and chronic bony changes at the first meta tarsal neck. There is lateral rotation of the first metatarsal head resulting in the medial half of t he first proximal phalangeal base losing its articular contact. There is bony irregularity and articu lar surface depression of 1 to 2 mm at the third metatarsal head. Bony irregularity relating to old h ealed fracture deformity of the fifth metatarsal shaft. Moderate-sized plantar heel spur. Some mild d egenerative spurring along the dorsal midfoot. No acute fracture, subluxation, dislocation. Left: Previous bunionectomy change. There is moderate degenerative change at the first MTP joint. Screw fix ation across the second PIP joint. Additional realignment at the second metatarsal neck. Small planta r heel spur. No acute fracture, subluxation, dislocation. IMPRESSION: Right: 1. Previous bunionectomy change as described above including lack of articular contact of the medial half of the first proximal phalangeal base with the metatarsal head. 2. 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 3. Old healed fracture deformity fifth metatarsal shaft. 4. Moderate-sized plantar heel spur. 5. Mild degenerative change dorsal midfoot. Left: 6. Status post bunionectomy. Moderate first MTP joint OA. 7. Previous surgical arthrodesis first PIP joint and surgical realignment at the second metatarsal ne ck. 8. Small plantar heel spur. [facility], , 12/22/2023 5:04 PM
== END | disposition home or self-care (01) ==
LOC: RADXRMAIN 10:52
PROVIDERS: ATTEND Podiatrist Primary Podiatric Medicine

== ENCOUNTER → 2024-02-19 | Outpatient (CLI) | payer OTHER ==
--- NOTE | 2024-02-19 08:20 | US ---
EXAMINATION TYPE: US liver DATE OF EXAM: 02/19/2024 COMPARISON: 08/22/2023 CLINICAL INDICATION: Female, 53 years old with history of K70.30 ALCOHOLIC CIRRHOSIS OF LIVER WITHOUT ASCITE; Hx Cholecystectomy, HTN, and DM TECHNIQUE: Grayscale and color Doppler imaging of the right upper quadrant was performed. FINDINGS: EXAM MEASUREMENTS: Liver Length: 14.0 cm Gallbladder Wall: Surgically absent cm CBD: 0.8 cm Right Kidney: 10.7 x 4.4 x 4.5 cm SIDE GUIDER NOTES: Pancreas: wnl Liver: Heterogenous otherwise WNL Gallbladder: Surgically absent Evidence for sonographic Muñoz's sign: No CBD: Dilated Right Kidney: wnl IMPRESSION: Heterogenous echotexture to liver without focal mass. Correlate for hepatocellular disease/hepatic st eatosis. [facility], , 02/19/2024 8:17 AM
[2024-02-19 10:33] LABS: ALT 36 U/L (8-44); AST 33 U/L (13-35); Albumin 4.2 g/dL (3.8-4.9); Alkaline Phosphatase 149 U/L (41-126); BUN/Creat Ratio 18.29 Ratio (12.00-20.00); Blood Urea Nitrogen 12.8 mg/dL (9.0-27.0); Calcium 9.4 mg/dL (8.7-10.3); Carbon Dioxide 25.9 mmol/L (21.6-31.8); Chloride 99 mmol/L (96-109); Glucose 130 mg/dL (70-110); Sodium 136 mmol/L (135-145); Total Bilirubin 0.7 mg/dL (0.3-1.2); Total Protein 7.2 g/dL (6.2-8.2)
[2024-02-19 10:38] LABS: Basophils # (A) 0.06 X 10*3/uL (0.00-0.10); Basophils % (A) 0.7 %; Eosinophils # (A) 0.22 X 10*3/uL (0.04-0.35); Eosinophils % (A) 2.4 %; HCT 48.5 % (37.2-46.3); Lymphocytes # (A) 3.04 X 10*3/uL (0.90-5.00); Lymphocytes % (A) 32.9 %; MCH 34.2 pg (27.0-32.0); MCHC 35.1 g/dL (32.0-37.0); MCV 97.6 FL (80.0-97.0); Mean Platelet Volume 10.8 FL (9.5-12.2); Monocytes # (A) 0.73 X 10*3/uL (0.20-1.00); Monocytes % (A) 7.9 %; NRBC Per 100 WBC 0 X 10*3/uL (0.00-0.01); Neutrophils # (A) 5.16 X 10*3/uL (1.80-7.70); Neutrophils % (A) 55.9 %; Platelet Count 133 X 10*3/uL (140-440); RBC 4.97 X 10*6/uL (4.10-5.20); RDW 13.4 % (11.5-14.5); WBC 9.23 X 10*3/uL (4.50-10.00)
== END | disposition home or self-care (01) ==
LOC: RADUSWWP 07:00
PROVIDERS: ATTEND Internal Medicine Gastroenterology
DX: K70.30 Alcoholic cirrhosis of liver without ascites (principal); K76.89 Other specified diseases of liver; E11.9 Type 2 diabetes mellitus without complications; I10 Essential (primary) hypertension; Z90.49 Acquired absence of other specified parts of digestive tract
CPT/HCPCS: 76705; 80053; 82105; 85025

== ENCOUNTER → 2024-03-20 | Outpatient (CLI) | payer OTHER ==
--- NOTE | 2024-03-26 10:34 | MR ---
EXAM: MR wrist RT wo con DATE OF EXAM: 03/20/2024 COMPARISON: None HISTORY: Tear of triangular fibrocartilage complex, Right wrist pain, swelling, redness, limited mov ements x3-4 months, Repetitive motions at work, Hx Bilateral Carpal tunnel surgery-RT- 2000, LT 2001 TECHNIQUE: Multiplanar, multisequence images of the left wrist were acquired without contrast. FINDINGS: BONES/JOINTS: Linear low T1 signal transversely oriented through the pisiform with large amount of ed abram within the pisiform on the fluid sensitive sequence, findings most consistent with a nondisplaced fracture. Small amount of degenerative subchondral cystic change within the distal pole of the triqu etrum. Small effusion within the lunotriquetral joint. Normal alignment. No ulnar variance. Distal ra dioulnar joint is normal. No joint effusion. LIGAMENTS: Scapholunate and lunotriquetral ligaments are normal. Extrinsic carpal ligaments are mendoza l. Evaluation of the triangular fibrocartilaginous complex is limited without intra-articular contras t. Given this limitation, there is a TFCC tear involving the attachment to the ulnar styloid as well as the meniscal homolog. TENDONS: Flexor tendons are normal. Extensor tendons are normal. SOFT TISSUES: Carpal tunnel is normal. Guyon's canal is normal. No bursal distention. No fluid collec tion. NEUROVASCULAR: The median nerve is normal in size, signal, and location. The ulnar nerve is normal in size, signal, and location. Vascular structures are normal OTHER: Normal. IMPRESSION: 1. TFCC tear involving the ulnar styloid attachment and the meniscal homolog. 2. Findings most consistent with nondisplaced pisiform fracture. 3. Lunotriquetral joint osteoarthritis [facility], Workstation: [employer], 03/26/2024 10:31 AM
== END | disposition home or self-care (01) ==
LOC: RADMRIMAIN 15:21
PROVIDERS: ATTEND Orthopaedic Surgery Hand Surgery
DX: S62.164A Nondisplaced fracture of pisiform, right wrist, initial encounter for closed fracture (principal); M19.031 Primary osteoarthritis, right wrist; X58.XXXA Exposure to other specified factors, initial encounter

== ENCOUNTER → 2024-06-20 | Outpatient (CLI) | payer OTHER ==
--- NOTE | 2024-06-20 17:25 | MM ---
Reason for Exam: Screening (asymptomatic). Last mammogram was performed 1 year(s) and 2 month(s) ago. Patient History: Menarche at age 15. First Full-Term at age 21. Postmenopausal. Patient has history of breast feeding. Hormonal Contraceptives, from age 17 until age 22. Risk Values: Concetta 5 year model risk: 0.9%. NCI Lifetime model risk: 6.9%. Prior Study Comparison: 03/19/2021 Bilateral Screening Mammogram, [facility]. 04/15/2022 Bilateral MG 3D screening mammo w/cad, [facility]. 04/17/2023 Bilateral MG 3D screening mammo w/cad, [facility]. Tissue Density: There are scattered areas of fibroglandular density. Findings: Analyzed By CAD. Central 6:00 focal asymmetry right breast middle depth remains unchanged. There is no suspicious group of microcalcifications or new suspicious mass in either breast. Overall Assessment: Benign, BI-RAD 2 Management: Screening Mammogram of both breasts in 1 year. Patient should continue monthly self-breast exams. A clinical breast exam by your physician is recommended on an annual basis. This exam should not preclude additional follow-up of suspicious palpable abnormalities. Note on Concetta scores and lifetime risk: 1. A Concetta score greater than 3% is considered moderate risk. If this is the case, consider specialist referral to assess eligibility for a risk reducing agent. 2. If overall lifetime risk for the development of breast cancer is 20% or higher, the patient may qualify for future screening with alternating mammogram and breast MRI. [facility], , 06/20/2024 5:22 PM. Electronically signed and approved by: Alexis Decker M.D. Radiologist
== END | disposition home or self-care (01) ==
LOC: RADMAMWWP 12:43
PROVIDERS: ATTEND Family Medicine
DX: Z12.31 Encounter for screening mammogram for malignant neoplasm of breast (principal); R92.323 Mammographic fibroglandular density, bilateral breasts; Z78.0 Asymptomatic menopausal state; Z92.0 Personal history of contraception
CPT/HCPCS: 77063; 77067